=== PATIENT | female | born 1980 | race African-American/Black ===

== ENCOUNTER 2024-12-30 09:26 | Outpatient (AMB) | payer BC, SELFPAY ==
--- OUTSIDE RECORDS SUMMARY | 2024-12-29 10:00 | XMS_ITS | Encounter Summary ---
Author Organization [facility] Address [address] [place] [address] Care Team Providers Care Mine Utility Operator Name Role Phone Diane Pina DO Primary Care Provider [phone] Reason for Visit * Consultation (Routine) - Authorized Specialty Diagnoses / Procedures Referred By Contbindu sellers Referred To Contact Physical Therapy Diagnoses Arthralgia, unspecified joint Diane Pina DO [address] [place] [address] Phone: tel: fax: Referral ID Status Reason Start Date Expiration Date Visits Requested Visits Authorized [id number] Authorized Specialty Services Required 09/17/2024 09/17/2025 21 21 Encounter Details Date Type Department Care Team ([facility] st Contact Info) Description 12/29/2024 10:00 AM EDT Treatment [address] [phone] Heather Gan PT Arthralgia, unspecified joint (Primary Dx) Social History Tobacco Use Types Packs/Day Years Used Date Smoking Tobacco: Never Smokeless Tobacco: Never Alcohol Use Standard Drinks/Week Comments Yes 0 (1 standard drink = 0.6 oz pur e alcohol) Socially, not weekly Housing Instability Answer Date Recorde d Are you worried that in the next 2 months you may not have stable housing? No 07/15/2024 Food Access & Nutrition Answer Date Rec orded Do you have access to a vari ety of food including fruits and vegetables? Yes 07/15/2024 Access to Healthcare Answer Date Record ed Within the last 3 months, ho w many times did you visit the emergency department for your medical care? 0 07/15/2024 Health Literacy Answer Date Recorded How often do you need to hav e someone help you when you read instructions, pamphlets, or other written material from your doctor or pharmacy? Never 07/15/2024 Caregiver: How often do you need to have someone help you when you read instructions, pamphlets, or other written material from your doctor or pharmacy? Not on file 07/15/2024 Financial Risk Answer Date Recorded How hard is it for you to pa y for the very basics like food, housing, medical care, and air conditioning / heating? Somewhat hard 07/15/2024 Transportation Answer Date Recorded Has the lack of transportati on kept you from meetings, work, or from getting things needed for daily living? No Has the lack of transportati on kept you from medical appointments or from getting medications? No 07/15/2024 Social Isolation Answer Date Recorded How often do you feel lonely or isolated from th ose around you? Never 07/15/2024 Food Risk Answer Date Recorded Within the past 12 months we worried whether our food would run out before we got money to buy more. Sometimes true 025 Within the past 12 months th e food we bought just didn't last and we didn't have money to get more. Never true 07/15/2024 Dependent Care Answer Date Recorded Do you need help finding or paying for care for your loved ones. For example, childhood development teacher or elderly care for an older adult? No 07/15/2024 Education Answer Date Recorded Do you think completing more education or training, like finishing a GED, going to college, or learning a trade, would be helpful for you? N/A 07/15/2024 Employment and Income Answer Date Recor ded During the last four weeks, have you been actively looking for work? No 07/15/2024 Living Situation Answer Date Recorded What is your living situation? 0 07/15/2024 Comments No Sex and Gender Information Value Date Recorded Sex Assigned at Female 07/23/2024 11:22 AM EST Legal Sex Female 10:30 PM EST Gender Identity Female 07/23/2024 11:22 AM EST Sexual Orientation Straight 07/23/2024 11 :22 AM EST documented as of this encounter Progress Notes * Heather Gan, PT - 12/29/2024 10:00 AM EDT [facility] - Outpatient PHYSICAL THERAPY DAILY TREATMENT NOTE - OP Date: 12/29/2024 Visit Number: [id number] Patient Name: Shelia Mcgarry : 1980 Age: 44 y.o. Gender: female Diagnosis: ICD-10-CM ICD-9-CM 1. Arthralgia, unspecified joint M25.50 719.40 Date of Onset/Surgery: 09/26/2024 Referring Provider: Diane Pina DO Insurance: Payor: [employer] PLAN / Plan: [employer]ICA[employer] / Product Type: *No Product type* / Patient Identified by: Heather Gan, DELFINO Language: Speaks and understands Hebrew as preferred language with no senior portfolio analyst required Medications: Current Outpatient Medications on File Prior to Visit Medication Sig Dispense Refill propranoloL (INDERAL) 20 mg tablet Take 1 tablet (20 mg total) by mouth 2 (two) times a day. 180 each 0 rimegepant (NURTEC) 75 mg dispersible tablet Take 1 tablet (75 mg total) by mouth 1 (one) time eachday if needed for migraine. 20 tablet 3 traZODone (DESYREL) 50 mg tablet Start with 25mg of trazodone once nightly, you may go up to a fulltablet (50mg) if you are not sleeping well. No current facility-administered medications on file prior to visit. Allergies: is allergic to gabapentin, morphine, and tylenol [acetaminophen]. Precautions: H/o arhythmia Fall risk: No SUBJECTIVE Subjective Report: Pt reported that she notices an improvement with the exercises. Chart Reviewed: Yes Pain: R low back/ hip discomfort, chronic, 3-09/25 TREATMENT INTERVENTION: Nu step, load 5, BLE/BUE, x 6 minutes Standing hip flexor and hamstring stretch, 3 x 15 seconds each (B) Standing resisted bilateral shoulder extension with TAC and marching steps x 5, blue TB, 10 x 5 seconds Pallof press with blue tubing with small CW/CCW circles x 2, x 10 reps (B) bug wall press, x 10 Hip MMT: Flexion: 3/5 (B) ABD: 4/5 L, 4/5 R Extension: 4/5 L, 4/5 R Active SLR x 10 (B), able to perform but slight discomfort on R when lifting RLE Core strength via double leg lowering test: 70 deg (below average -> poor) Floor -> standing transfer on low plinth, x 1, pt able to perform with slight difficulty when standing from quadruped position Bridging x 10 Middle trapezius MMT: 3/5 L, 4-/5 R Lower trapezius MMT: 3/5 L, 4-/5 R Ankle MMT: DF: 4/5 L, 5/5 R PF: 4/5 L, 5/5 R Inversion: 4/5 L, 5/5 R Eversion: 4/5 L, 5/5 R Pt exhibited in ability to sit in relaxed position with toes resting flat on floor Seated big toe press and big toe lift, x 5 each (B) with assist [HEP] Seated toe flexion AROM vs towel on floor, x 5 [HEP] Shoulder ABD AROM via wall slides, x 5, pt demonstrated fair -> fair plus scapulothoracic rhythm HEP: seated shoulder circles, backward, x 10; seated scapular retraction, 10 x 5 seconds; standing isometric shoulder flexion, ABD, ER and extension, 10 x 5 seconds each (B); standing doorway pectoralis minor stretch, 3 x 15 seconds (B); prone A-lifts on Motta, x 10 (B); prone elbow lifts on Motta, x 10 (B); prone swimmers on Motta, x 10 (B), face pull, x 10 x up to 3 sets ASSESSMENT/Response to Treatment Good Pt tolerated therapy session well. Pt demonstrated increased hip MMT overall, however, core strength remains unchanged. Pt reported decreased stability through bilateral feet during functional mobility (floor and chair transfers) without use of UEs. Upon further inspection, pt demonstrated toe flexion at rest and reported that is how she is during standing activities. Pt would benefit from continued PT to address impairments of foot strength and balance in order to allow for greater stability during functional mobility. Short-term goals: Pt will demonstrate compliance with HEP - MET Pt will report decreased pain level to < 6/10 at worst - MET Pt will increase middle and lower trapezius MMT to 3/5 - NOT MET, improving Pt will demonstrate improved postural awareness and scapular resting position - MET Pt will demonstrate at least fair scapulothoracic rhythm during shoulder ABD AROM - MET Pt will complete evaluation of low back pain - MET Long-term goals: Pt will demonstrate independence with HEP - NOT MET, ongoing development Pt will report decreased pain level to < 2/10 at worst - NOT MET, improving Pt will demonstrate full pain-free cervical and shoulder AROM - NOT ASSESSED Pt will increased middle and lower trapezius MMT To 4-/5 - NOT MET, improving Pt will demonstrate scapular resting position to WNL - NOT MET, improving Pt will demonstrate at least fair plus scapulothoracic rhythm during shoulder ABD AROM - NOT MET, improving Pt will increase hip MMT to 4+/5 Pt will perform active SLR without difficulty or pain Pt will transfer floor -> standing without difficulty Pt will demonstrate ability to perform balance activities without excessive toe flexion Patient Education: Education provided: HEP added as described above Education Provided To: Patient utilizing Explanation, Demonstration, and Printed Material mode(s) of education Response to Education: Verbal Understanding and Demonstrated Skills PLAN POC Development/Review: Changes in the Plan of Care; Participants: Patient 2x/wk for 4 wks for BLE strengthening with focus on improving ankle/foot strength and balance Interventions Time Entry: Modalities: Therapeutic procedures: Therapeutic Exercise Time Entry: 40 Total Treatment Time: 40 Documentation completed by Heather Gan PT documented in this encounter Plan of Treatment Upcoming Encounters Date Type Department Care Team (Late st Contact Info) Description 01/21/2025 11:00 AM EDT Office Visit Internal [facility] - [address] [place] [address] Diane Pina, [address] [place] [address] 01/28/2025 12:30 PM EDT Treatment [address] [phone] Heather Gan PT 01/30/2025 12:30 PM EDT Treatment [address] [place] [phone] Heather Gan, PT 02/03/2025 12:30 PM EDT Treatment [facility] [address] [phone] Heather Gan, PT 02/05/2025 12:30 PM EDT Treatment [address] [phone] Heather Gan, PT 02/09/2025 12:30 PM EDT Treatment [address] [phone] Heather Gan, PT 02/11/2025 12:30 PM EDT Treatment [facility] [address] [phone] Heather Gan, PT 02/17/2025 12:30 PM EDT Treatment [address] [phone] Heather Gan, PT 02/19/2025 12:30 PM EDT Treatment [address] [phone] Heather Gan, PT 03/06/2025 11:30 AM EDT Office Visit [facility] [address] [phone] Brooke Soto PA [address] [phone] documented as of this encounter Visit Diagnoses Diagnosis Arthralgia, unspecified joint- Primary documented in this encounter Additional Health Concerns Assessment Noted Time PHQ-9 Depression Total Score: 0 07/15/19 25 2:36 PM EST documented as of this encounter Care Teams Mine Utility Operator Relationship Specialty Start Date End Date Diane Pina DO [address] [place] [id number] PCP - General Internal Medicine 05/12/24 documented as of this encounter
--- NOTE | 2024-12-30 09:28 | MHC.OFFVIS ---
Vital Signs 12/30/24 09:31 Height 5 ft 6.14 in Weight 143 lb BMI 23.0 BP 130/80 Blood Pressure Location Lt brachial Position Sitting Pulse 67 Pulse Source Pulse Oximeter Pulse Oximetry (%) 98 Oxygen Delivery Method Room Air Intake Visit Reasons: + Intake Note: Patient presents today for a +. Allergies acetaminophen (From Tylenol) Allergy (Mild, Verified 12/30/24 09:34) Hives gabapentin Allergy (Mild, Verified 12/30/24 09:34) Anxiety morphine Allergy (Mild, Verified 12/30/24 09:34) Irritable HPI HPI +: Details: She is working with neurologist for headache management. Neurologist recommending repeating due to constellation of symptoms patient was experiencing. I reviewed labs on patient's portal access through her phone: 10/2024 was 1:320. SSA, SSB, RF negative. MRI brain 2023 negative. She had joint pain and myalgias. Paired biomagnetic modalties ordered by functional medicine has helped reduce weight. Improved Gi symptoms - bloating. She has been in PT with improvement in strength. She has noticed that she has had difficulties in lifting her lower extremities. Physical therapy is working on improving her core strength and lower extremity weakness. R trochanteric bursa pain. Intermittent on left side. Improved with PT. No fevers, dyspnea, oral ucers, dysphagia, rash, pleurisy, urinary symptoms, skin tightening Mother has rheumatoid arthritis. [facility] Medical History (Updated 12/30/24 @ 21:45 by King Davidson MD) Positive (antinuclear antibody) Surgical History (Updated 12/30/24 @ 09:35 by Nataliia Jolly CMA) History of hysterectomy Physical Exam Vital Signs: Last Vital Signs Pulse 67 12/30/24 09:31 BP 130/80 12/30/24 09:31 Pulse Ox 98 12/30/24 09:31 Oxygen Delivery Method Room Air 12/30/24 09:31 BMI result Body Mass Index 23.0 Const Other: General: Comfortable CVS: RRR Respiratory: clear to auscultation bilaterally. Good respiratory effort Skin: No lesions seen MSK: Diffuse allodynia of back and lower extremities. No synovitis. Bilateral ankle tenderness. 5/5 power upper extremities. Bilateral Hip flexor power 1/5, she is unable to dorsiflex her ankles. Hip extensors, knee flexors and extensors and ankle plantar flexors power 5/5. She is able to ambulate without aids. Assessment & Plan Assessment & Plan (1) Muscle weakness of lower extremity: Comment: Progressive worsening bilateral lower extremity weakness both proximal and distally with concern for the development of foot drop. 1:320. She does not have any other clinical signs or symptoms aside from lower extremity weakness. I will further workup for muscle and nerve involvement in connective tissue disease. Code(s): M62.81 - Muscle weakness (generalized) Category: Medical Plan: Baseline labs ordered including inflammatory markers, muscle enzymes, lupus specific markers, ANCA, and myositis specific panel. EMG lower extremities ordered Continue PT for strengthening Return to clinic in 3 months (2) Fibromyalgia: Comment: She has diffuse allodynia on exam involving her back and lower extremities. Can consider fibromyalgia contributing to myalgias but weakness is not a component of fibromyalgia needs further workup. Code(s): M79.7 - Fibromyalgia Category: Medical Plan: Workup for lower extremity weakness as above Orders: Orders C Reactive Protein Today M62.81 - Muscle weakness (generalized), Z79.899 - Other pen[facility]iary (current) drug therapy Aldolase Today M62.81 - Muscle weakness (generalized) Creatinine Today R76.0 - Raised antibody titer Protein Creatinine Ratio, Ur Today R76.0 - Raised antibody titer NE electromyogram (EMG) Today M62.81 - Muscle weakness (generalized) ANCA Vasculitides Today M62.81 - Muscle weakness (generalized) MSA Panel 11 Myositis Spec Abs Today M62.81 - Muscle weakness (generalized) Creatine Kinase Total Today M62.81 - Muscle weakness (generalized) Erythrocyte Sedimentation Rate Today M62.81 - Muscle weakness (generalized), Z79.899 - Other penitentiary (current) drug therapy Complete Blood Count Man Dif Today R76.0 - Raised antibody titer Alanine Aminotransferase Today R76.0 - Raised antibody titer Aspartate Amino Transferase Today R76.0 - Raised antibody titer Complement C3 Today R76.0 - Raised antibody titer Complement C4 Today R76.0 - Raised antibody titer UA w Microscopic Today R76.0 - Raised antibody titer Anti DNA DS Antibody Today R76.0 - Raised antibody titer NE nerve conduction velocity Today M62.81 - Muscle weakness (generalized) Coding Level of Care Code Est Pt Level 4 (78482) Complex EM visit Add On G2211 Diagnoses Muscle weakness of lower extremity M62.81 Fibromyalgia M79.7
[2024-12-30 09:31] VITALS: BP 130/80; PULSE 67; O2SAT 98; BMI 23.0
--- OUTSIDE RECORDS SUMMARY | 2024-12-30 09:57 | XMS_ITS | Encounter Summary ---
Author Organization [facility] Address [address] [place] [address] Care Team Providers Care Mill Tender Second Operator Name Role Phone Radha Romano APRN Primary Care Provider + Jordan Ken MD Unavailable [phone] Encounter Details Date Type Department Care Team (Late st Contact Info) Description 04/04/2024 Scanned Document [facility] [address] [place] [phone] Radha Romano APRN [address] [place] [address] Social History Tobacco Use Types Packs/Day Years Used Date Smoking Tobacco: Never Smokeless Tobacco: Never Alcohol Use Standard Drinks/Week Comments Not Asked 0 (1 standard drink = 0.6 oz pur e alcohol) 1 drink/week PHQ-2 Answer Date Recorded PHQ-2 Total Score 4 06/22/2023 Comments No Sex and Gender Information Value Date Recorded Sex Assigned at Female 10/08/2023 7:18 AM EDT Legal Sex Female 3:16 PM EST Gender Identity Female 10/08/2023 7:18 AM EDT Sexual Orientation Heterosexual (straight) 10/07 7:18 AM EDT documented as of this encounter Plan of Treatment Not on file documented as of this encounter Visit Diagnoses Not on filedocumented in this encounter Care Teams Mill Tender Second Operator Relationship Specialty Start Date End Date Radha Romano APRN [address] [facility] [address] [place] [address] PCP - General Internal Medicine 06/22/23 Jordan Ken MD 7 [facility] [address] [place] [address] Primary Barrel Lathe Operator Cardiovascular Disease 11/28/23 documented as of this encounter
--- OUTSIDE RECORDS SUMMARY | 2024-12-30 09:58 | XMS_ITS | Clinical Summary ---
Author Organization [facility] Address [address] [place] [address] Care Team Providers Care Offset Pressman Name Role Phone Unavailable Primary Care Provider Unavailabl e Immunizations Name Administration Dates Next Due IPV 04/09/2019 Social History Tobacco Use Types Packs/Day Years Used Date Smoking Tobacco: Never Assessed Sex and Gender Information Value Date Recorded Sex Assigned at Not on file Gender Identity Not on file Sexual Orientation Not on file Job Start Date Occupation Industry Not on file Not on file Not on file Plan of Treatment Health Maintenance Due Date Last Done Comments Hepatitis B Vaccines (1 of 3 - 3-dose series) 1980 Hepatitis C Screening 1980 Depression Screening 1993 Preventative Health Evaluation 11/21/1999 Cervical Cancer Screening (Pap Smear) 2002 DTap / Tdap / Td (2 - Td or Tdap) 10/24/2022 10/24/2012 COVID-19 Vaccine ( season) 2024 11/16/2020, 10/18/2020 Influenza Vaccine (#1) 2025 , 03/01/2020, 04/06/2019, Additional history exists Pneumococcal Vaccine Aged Out No long er eligible based on patient's age to complete this topic RSV Ped < 20 months Aged Out No longe r eligible based on patient's age to complete this topic
--- OUTSIDE RECORDS SUMMARY | 2024-12-30 09:58 | XMS_ITS | Data Portability ---
Author Organization [facility], [facility], Primary Care [facility] Address [address] Care Team Providers Care Impregnator Helper Name Role Phone ADRIEL MACEDO Primary Care Provider JULIA DEGROOT Educational Adviser [phone] Assessment Encounter Date Assessment Date Assessment LastModified by Organization Details LastModified Time 01/24/2021 01/24/2021 I spent a total of 60 minutes on the same date of service providing [id number] and [id number] susan patient care. [email or web address] Not available 01/24/2021 17:53:17 02/24/2021 02/24/2021 The service is provided via Teleus which is an audio visual platform. I personally saw and spoke to the patient. Pt gave consent for this service. I was at the office. Patient was home. Office Supervisor, patient and I were the only people involved with the TeleHealth visit. This service was medically necessary due to underlying medical condition. Time spent in preparation, evaluation, and management of the patient = 22 minutes [email or web address] Not available 02/24/2021 15:35:05 Plan of Treatment Reminders Order Date Submit Date Provider Last Modified By Organization Details Last Modified Time Details Appointments None recorded. Lab catalina screen, serum 2020 021 [facility], [address] [place] [address], 30970, 09:01:21 thyroperoxi dase Ab, serum 2020 021 [facility], [address] [place] [address], 71255, 1 08:36:49 HIV (1+2) Ab screen, serum 2020 021 [facility], [address] [place] [address], 27224, 1 19:31:15 hepatitis (A+B+C) panel, serum 2020 021 [facility], [address] [place] [address], 65263, 1 08:37:00 antiphospho lipid antibody panel, serum 2020 021 [facility], [address] [place] [address], 89716, 1 08:37:21 catalina screen, serum 2020 021 [facility], [address] [place] [address], 03016, 1 09:01:21 C3 + C4 (complement ), serum 2020 021 [facility], [address] [place] [address], 71916, 1 08:38:02 CBC w/ diff 2020 021 [facility], [address] [place] [address], 88334, 1 09:01:21 CMP, serum or plasma 2020 021 [facility], [address] [place] [address], 55645, 1 19:31:12 protein/cre atinine, ratio, urine 2020 021 [facility], [address] [place] [address], 72034, 09:01:21 urinalysis, complete 2020 021 [facility], [address] [place] [address], 21550, 09:01:21 scleroderma (scl-70) Ab, serum [address] [facility], [address] [place] [address], 60104, 10:38:12 centromere Ab, serum [address] [facility], [address] [place] [address], 94202, 10:38:12 rf (rheumatoid factor), serum 2020 [facility], [address] [place] [address], 29459, 15:49:19 ccp (cyclic citrullinat ed peptide) igg, serum 2020 021 [facility], [address] [place] [address], 11171, 15:49:21 (antinuclea r antibodies) screen, serum [address] [facility], [address] [place] [address], 59058, 2 10:00:06 CK (creatine kinase), total, serum 2020 021 [facility], [address] [place] [address], 89376, 1 15:49:16 ESR (erythrocyt e sedimentati on rate), blood [address] [facility], [address] [place] [address], 21081, 2 10:00:06 C reactive protein, QN, serum or plasma 2020 021 [email or web address] [facility], [address] [place] [address], 05817, 2 10:00:06 celiac disease comprehensi ve panel, serum 2019 020 [facility], [address] [place] [address], 97487, 0 19:33:31 CK (creatine kinase), total, serum 2019 020 [facility], [address] [place] [address], 66103, 0 10:01:19 rf (rheumatoid factor), serum 2019 020 [facility], [address] [place] [address], 01757, 0 10:01:26 C-reactive protein, quantitativ e, serum or plasma 2019 020 [facility], [address] [place] [address], 31429, 0 10:01:20 erythrocyte sedimentati on rate by westergren method 2019 020 [facility], [address] [place] [address], 31613, 1 15:49:17 (antinuclea r antibodies) screen, serum 2019 020 [facility], [address] [place] [address], 45113, 0 12:40:44 lyme disease igg+igm, serum, reflex western blot [address] [facility], [address] [place] [address], 56334, 1 08:56:49 HIV (1+2) differentia tion, rapid immunoassay , serum [address] [facility], [address] [place] [address], 16119, 1 08:56:49 hepatitis B surface Ab, qualitative , serum [address] [facility], [address] [place] [address], 42958, 1 08:56:49 vitamin D, 25-hydroxy, total, serum 2019 [facility], [address] [place] [address], 05011, 0 10:01:27 CMP, serum or plasma 2019 [facility], [address] [place] [address], 62231, 0 10:01:18 CBC [address] [facility], [address] [place] [address], 38399, 0 16:23:34 lipid panel, blood [address] [facility], [address] [place] [address], 89440, 0 16:23:34 HbA1c (hemoglobin A1c), blood [address] [facility], [address] [place] [address], 83975, 0 16:23:34 TSH, serum or plasma 2019 [facility], [address] [place] [address], 18647, 0 10:01:23 T4, free, serum [address] [facility], [address] [place] [address], 46056, 0 16:23:34 hepatitis C virus Ab, serum [address] [facility], [address] [place], [address], 1 11:05:31 Referral orthopedic surgeon referral - Progressive lumbar radiculopat hy 2/2 lateral disc protrusion worsening proximal muscle weakness. [address] [facility], [address], [place], [address], 1 11:06:40 rheumatolog ist referral 2020 SCARLETT Degroot, [address], [place], [address], 1 17:57:19 gastroenter ologist referral [address] [facility]), [address], [place], [address], 1 15:39:44 Procedures None recorded. Surgeries None recorded. Imaging XR, shoulder, 2 or more view 2020 [facility] (Central Scheduling), [address] [place], [address], 1 17:09:19 MRI, lumbar spine, w/o contrast 2019 [facility] (Central Scheduling), [address] [place], [address], 0 15:07:11 MRI, brain, w/o contrast 2019 020 [facility] (Central Scheduling), [address] [place], [address], 0 08:52:54 Medication Orders meloxicam 15 mg tablet 2020 021 [email or web address], [address] [place], [address], 17:52:13 hydroxyzine HCl 25 mg tablet 2020 021 [facility] [address] [place], [address], 10:53:56 ibuprofen 600 mg tablet 2020 021 [facility] [address] [place], [address], 10:53:56 pantoprazol e 40 mg tablet,fide yed release 2019 020 [facility] [address] [place], [address], 10:24:19 gabapentin 100 mg capsule 2019 020 [facility], [address] [place], [address], 10:24:37 lorazepam 0.5 mg tablet 2019 020 [facility], [address] [place], [address], 10:24:25 Patient TargetsNo targets recorded. Patient InstructionsNo instructions recorded. Reason for Referral Blueprint Reader Referral for Celiac disease Referring Physician: Adriel Macedo, Internal Medicine, Encounter Date: 01/29/2020 Educational Adviser Referral for Pain of multiple joints Referring Physician: Adriel Macedo, Internal Medicine, Encounter Date: 12/30/2020 Orthopedic Surgeon Referral for Lumbar radiculopathy Progressive lumbar radiculopathy 2/2 lateral disc protrusion worsening proximal muscle weakness. Referring Physician: Julia Degroot, Rheumatology, Encounter Date: 01/24/2021 Results Created Date Observation Date Name Description Value Unit Range Abnormal Flag Note LastModifiedBy Organization Detail LastModifiedTime 01/30/20 20 01/30/2020 CBC w/ auto diff white blood count 5.0 /cumm 4.8-10 .8 normal Not Available [facility] [address] [place], [address], 01/30/2020 15:40:22 01/30/20 20 01/30/2020 CBC w/ auto diff red blood count 4.71 /cumm 4.20-5 .40 normal Not Available [facility] [address] [place], [address], 01/30/2020 15:40:22 01/30/20 20 01/30/2020 CBC w/ auto diff hemoglobin 13.2 g/dL 12.0-1 6.0 normal Not Available [facility] [address] [place], [address], 01/30/2020 15:40:22 01/30/20 20 01/30/2020 CBC w/ auto diff hematocrit 42.2 % 37-47 normal Not Available [facility] [address] [place], [address], 01/30/2020 15:40:22 01/30/20 20 01/30/2020 CBC w/ auto diff mean corpuscular volume 89.6 fL 80.0-9 6.0 normal Not Available [facility] [address] [place], [address], 01/30/2020 15:40:22 01/30/20 20 01/30/2020 CBC w/ auto diff mean corpuscular hemoglobin 28.0 pg 27.0-3 1.0 normal Not Available [facility] [address] [place], [address], 01/30/2020 15:40:22 01/30/20 20 01/30/2020 CBC w/ auto diff mean corpuscular HGB conc 31.3 g/dL 32.0-3 7.0 low Not Available [facility] [address] [place], [address], 01/30/2020 15:40:22 01/30/20 20 01/30/2020 CBC w/ auto diff red cell distribution width 12.9 % 11.5-1 4.5 normal Not Available [facility] [address] [place], [address], 01/30/2020 15:40:22 01/30/20 20 01/30/2020 CBC w/ auto diff platelet count 233 /cumm 140-44 0 normal Not Available [facility] [address] [place], [address], 01/30/2020 15:40:22 01/30/20 20 01/30/2020 CBC w/ auto diff mean platelet volume 12.9 fL 7.4-12 .0 high Not Available [facility] [address] [place], [address], 01/30/2020 15:40:22 01/30/20 20 01/30/2020 CBC w/ auto diff granulocytes percent auto 43.3 % 40.0-7 2.0 normal Not Available [facility] [address] [place], [address], 01/30/2020 15:40:22 01/30/20 20 01/30/2020 CBC w/ auto diff lymphocytes percent auto 47.6 % 20.0-5 1.0 normal Not Available [facility] [address] [place], [address], 01/30/2020 15:40:22 01/30/20 20 01/30/2020 CBC w/ auto diff monocytes percent auto 7.1 % 1.0-13 .0 normal Not Available [facility] [address] [place], [address], 01/30/2020 15:40:22 01/30/20 20 01/30/2020 CBC w/ auto diff eosinophils percent auto 1.6 % 0-7.0 normal Not Available [facility] [address] [place], [address], 01/30/2020 15:40:22 01/30/20 20 01/30/2020 CBC w/ auto diff basophils percent auto 0.4 % 0-2.0 normal Not Available [facility] [address] [place], [address], 01/30/2020 15:40:22 01/30/20 20 01/30/2020 CBC w/ auto diff immature granulocyte percent 0 % 0-1.0 normal Not Available [facility] [address] [place], [address], 01/30/2020 15:40:22 01/30/20 20 01/30/2020 CBC w/ auto diff lymphocytes absolute auto 2.4 /cumm 1.0-4. 0 normal Not Available [facility] [address] [place], [address], 01/30/2020 15:40:22 01/30/20 20 01/30/2020 CBC w/ auto diff monocytes absolute auto 0.4 /cumm 0-1.0 normal Not Available [facility] [address] [place], [address], 01/30/2020 15:40:22 01/30/20 20 01/30/2020 CBC w/ auto diff eosinophils absolute auto 0.1 /cumm 0-1.0 normal Not Available [facility] [address] [place], [address], 01/30/2020 15:40:22 01/30/20 20 01/30/2020 CBC w/ auto diff basophils absolute auto 0.0 /cumm 0-0.2 normal Not Available [facility] [address] [place], [address], 01/30/2020 15:40:22 01/30/20 20 01/30/2020 CBC w/ auto diff immature gran absolute auto 0.0 /cumm 0-0.3 normal Not Available [facility] [address] [place], [address], 01/30/2020 15:40:22 01/30/20 20 01/30/2020 eryth rocyt e sedim entat ion rate erythrocyte sedimentatio n rate 3 mm 0-20 normal Not Available [facility] [address] [place] [address], 97710, 01/30/2020 18:13:31 01/30/20 20 01/30/2020 CMP, serum or plasm a glucose 85 mg/dL 65-99 normal Not Available [facility] [address] [place] [address], 95557, 01/31/2020 10:01:18 01/30/20 20 01/30/2020 CMP, serum or plasm a BUN 10 mg/dL 7-17 normal Not Available [facility] [address] [place] [address], 22709, 01/31/2020 10:01:18 01/30/20 20 01/30/2020 CMP, serum or plasm a creatinine 0.7 mg/dL 0.5-1. 0 normal Not Available [facility] [address] [place] [address], 58143, 01/31/2020 10:01:18 01/30/20 20 01/30/2020 CMP, serum or plasm a BUN creatinine ratio 14.3 % 7-25 normal Not Available [facility] [address] [place] [address], 95968, 01/31/2020 10:01:18 01/30/20 20 01/30/2020 CMP, serum or plasm a estimated glomerular filt rate > 60 mL/mi n >60 normal NON Afric an Ameri can Comme nts: Value s under 60 mL/mi n/1.7 3m2 may indic ate CKD if noted for more than 3 month s. eGFR is only valid if creat inine is at stead y state . Not Available [facility] [address] [place] [address], 11936, 01/31/2020 10:01:18 01/30/20 20 01/30/2020 CMP, serum or plasm a estimated GFR ( nelsy > 60 mL/mi n >60 normal [employer] Comme nts: Value s under 60 mL/mi n/1.7 3m2 may indic ate CKD if noted for more than 3 month s. eGFR is only valid if creat inine is at stead y state . Not Available [facility] [address] [place] [address], 53065, 01/31/2020 10:01:18 01/30/20 20 01/30/2020 CMP, serum or plasm a sodium 140 mmol/ L 137-14 5 normal Not Available [facility] [address] [place] [address], 34065, 01/31/2020 10:01:18 01/30/20 20 01/30/2020 CMP, serum or plasm a potassium 4.2 mmol/ L 3.5-5. 1 normal Not Available [facility] [address] [place] [address], 77593, 01/31/2020 10:01:18 01/30/20 20 01/30/2020 CMP, serum or plasm a chloride 106 mmol/ L 98-107 normal Not Available [facility] [address] [place] [address], 43776, 01/31/2020 10:01:18 01/30/20 20 01/30/2020 CMP, serum or plasm a carbon dioxide 28 mmol/ L 22-30 normal Not Available [facility] [address] [place] [address], 88365, 01/31/2020 10:01:18 01/30/20 20 01/30/2020 CMP, serum or plasm a anion gap 6 5-16 normal Not Available [facility] [address] [place] [address], 17850, 01/31/2020 10:01:18 01/30/20 20 01/30/2020 CMP, serum or plasm a calcium 9.3 mg/dL 8.4-10 .2 normal Not Available [facility] [address] [place] [address], 28407, 01/31/2020 10:01:18 01/30/20 20 01/30/2020 CMP, serum or plasm a total protein 6.8 g/dL 6.3-8. 2 normal Not Available [facility] [address] [place], [address], 01/31/2020 10:01:18 01/30/20 20 01/30/2020 CMP, serum or plasm a albumin level 3.9 g/dL 3.5-5. 0 normal Not Available [address], [address], 01/31/2020 10:01:18 01/30/20 20 01/30/2020 CMP, serum or plasm a globulin 2.9 g/dL 1.9-4. 1 normal Not Available [facility] [address] [place] [address], 38759, 01/31/2020 10:01:18 01/30/20 20 01/30/2020 CMP, serum or plasm a albumin globulin ratio 1.3 % 1.1-2. 2 normal Not Available [address], [address], 01/31/2020 10:01:18 01/30/20 20 01/30/2020 CMP, serum or plasm a bilirubin,to sesar 0.6 mg/dL 0.2-1. 3 normal Not Available [address], [address], 01/31/2020 10:01:18 01/30/20 20 01/30/2020 CMP, serum or plasm a alkaline phosphatase 59 U/L <127 normal Not Available [facility] [address] [place] [address], 79490, 01/31/2020 10:01:18 01/30/20 20 01/30/2020 CMP, serum or plasm a aspartate amino transferase 22 U/L 14-36 normal Not Available [facility] [address] [place] [address], 29509, 01/31/2020 10:01:18 01/30/20 20 01/30/2020 CMP, serum or plasm a alanine aminotransfe rase < 4 U/L <35 normal Not Available [facility] [address] [place] [address], 75470, 01/31/2020 10:01:18 01/30/20 20 01/30/2020 CK (crea edouard kinas e), total , serum creatine kinase 67 U/L 30-135 normal Not Available [facility] [address] [place], [address], 01/31/2020 10:01:19 01/30/20 20 01/30/2020 C-hernandez ctive prote in, quant itati ve, serum or plasm a C reactive protein < 0.5 mg/dL <1.0 normal Not Available [facility] [address] [place], [address], 01/31/2020 10:01:20 01/30/20 20 01/30/2020 lipid panel , serum cholesterol 184 mg/dL <200 normal Not Available [facility] [address] [place], [address], 01/31/2020 10:01:21 01/30/20 20 01/30/2020 lipid panel , serum triglyceride s 104 mg/dL <150 normal Not Available [facility] [address] [place], [address], 01/31/2020 10:01:21 01/30/20 20 01/30/2020 lipid panel , serum HDL cholesterol 74 mg/dL 40-60 high Not Available [facility] [address] [place], [address], 01/31/2020 10:01:21 01/30/20 20 01/30/2020 lipid panel , serum LDL cholesterol calculated 90 mg/dL 65-129 normal Not Available [facility] [address] [place], [address], 01/31/2020 10:01:21 01/30/20 20 01/30/2020 lipid panel , serum chol HDL ratio 2.00 % 0.00-4 .23 normal Not Available [facility] [address] [place], [address], 01/31/2020 10:01:21 01/30/20 20 01/30/2020 thyro xine, free, QN, serum or plasm a free T4 free thyroxine 1.18 NG/dL 0.78-2 .49 normal Not Available [facility] [address] [place] [address], 18879, 01/31/2020 10:01:22 01/30/20 20 01/30/2020 TSH, serum or plasm a thyroid stimulating hormone 5.820 uIU/m L 0.270- 4.200 high Not Available [facility] [address] [place] [address], 16164, 01/31/2020 10:01:23 01/30/20 20 01/31/2020 HBsAg (hepa titis B surfa ce Ag), serum hepatitis B surface antigen NONREA CTIVE nonrea ctive normal Not Available [facility] [address] [place] [address], 17380, 01/31/2020 10:01:24 01/30/20 20 01/31/2020 hepat itis C virus Ab, serum hepatitis C virus antibody IgG NONREA CTIVE nonrea ctive normal Not Available [facility] [address] [place] [address], 13647, 01/31/2020 10:01:25 01/30/20 20 01/30/2020 rf (rheu matoi d facto r), serum rheumatoid factor < 8.6 IU/mL <12 normal Not Available [facility] [address] [place] [address], 49336, 01/31/2020 10:01:25 01/30/20 20 01/30/2020 vitam in D, 25-hy droxy , total , serum vitd 25 hydroxy 33.8 NG/mL 30-100 normal Not Available [facility] [address] [place] [address], 63023, 01/31/2020 10:01:27 01/30/20 20 01/30/2020 HIV (1+O+ 2) Ab, serum HIV 1 and 2 antibody NONREA CTIVE nonrea ctive normal Not Available [facility] [address] [place], [address], 01/31/2020 10:01:27 01/30/2002/01/2020 hemog lobin A1C/h emogl obin total , QN, blood hemoglobin A1C 5.6 % 4.2-5. 8 normal Not Available [facility] [address] [place] [address], 605[address], 02/01/2020 09:25:39 01/30/20 20 02/01/2020 luc c disea se compr ehens yo panel , serum gliadin (deamidated) Ab (IgA) 5 units normal Value Inter preta tion ----- ----- ----- ---- <20 Antib willi not detec katherine >or=2 0 Antib willi detec katherine Not Available [facility] [address] [place] [address], 86[address], 02/01/2020 19:33:30 01/30/20 20 02/01/2020 luc c disea se compr ehens yo panel , serum gliadin (deamidated) Ab (IgG) 3 units normal Value Inter preta tion ----- ----- ----- ---- <20 Antib willi not detec katherine >or=2 0 Antib willi detec katherine THIS TEST WAS PERFO RMED AT: [facility] [address] ,[place] [phone] CARTER RAINES MD Not Available [facility] [address] [place] [address], [address], 02/01/2020 19:33:30 01/30/2002/01/2020 luc c disea se compr ehens yo panel , serum tissue transglutami nase Ab IgA 1 U/mL normal Value Inter preta tion ----- ----- ----- ---- <4 No Antib willi Detec katherine > or = 4 Antib willi Detec katherine THIS TEST WAS PERFO RMED AT: [facility] [address] ,[place] [address] CARTER RAINES MD Not Available [facility] [address] [place] [address], 05674, 02/01/2020 19:33:30 01/30/20 20 02/01/2020 luc c disea se compr ehens yo panel , serum tissue transglutami nase Ab IgG 1 U/mL normal Value Inter preta tion ----- ----- ----- ---- <6 No Antib willi Detec katherine > or = 6 Antib willi Detec katherine Not Available [facility] [address] [place], [address], 02/01/2020 19:33:30 01/30/20 20 02/01/2020 luc c disea se compr ehens yo panel , serum immunoglobul in A 113 mg/dL 47-310 normal THIS TEST WAS PERFO RMED AT: [facility] [employer] [employer] [facility] [address] ,[place] [phone] CARTER RAINES MD Not Available [facility] [address] [place] [address], [address], 02/01/2020 19:33:30 01/30/20 20 02/01/2020 lyme disea se antib willi lyme disease antibody 0.32 ratio <1.0 normal REFER ENCE RANGE S RATIO INTER PRETA TION ===== ===== ===== ==== < or = to 0.90 Negat yo (No Lyme Disea se detec katherine) 0.91 - 1.09 Equiv ocal (Low level of Lyme Disea se antib willi detec katherine. Sugge st repea t wilfred sis to confi rm antib willi statu s.) > or = to 1.1 Posit yo (Lyme Disea se Antib willi detec katherine) NOTE: All resul ts great er than 0.90 are refle xed for confi rmati on by Jason hair Blot. Not Available [facility] [address] [place], [address], 02/05/2020 12:40:43 01/30/20 20 02/05/2020 (anti nucle ar antib odies ) scree n, serum anti nuclear antibody screen Pos by IFA Assay neg 1:40 normal Not Available [facility] [address] [place], [address], 02/05/2020 12:40:44 01/30/20 20 02/05/2020 titer , serum anti nuclear antibody titer Pos 1:640 normal Not Available [facility] [address] [place], [address], 02/05/2020 12:40:45 01/30/20 20 02/05/2020 patte rn, serum anti nuclear antibody pattern Homoge neous normal Rerer ence Range s: ===== ===== ===== ===== ===== ===== == Negat yo: <1:40 Low AB Level : 1:40 to 1:80 Newfane katherine AB Level : >1:16 0 ===== ===== ===== ===== ===== ===== == (Martha rect Immun ofluo resce nce - KB Cell Line) NOTE: Low titer s of may be found in the josh l popul ation , incid ence in healt hy adult s incre ases with age and is highe r in femal es. Up to 1/3 of patie nts over age 65 have a low titer posit yo . Quali tativ angelica sever al patte rns of fluor escen ce can be seen inclu ding Speck led, Homog eneou s, Centr omere , Nucle olar and Perip heral Rim, Multi ple patte rns may also co-ex ist. Titer s in the range of 1:125 0 are sugge stive of SLE or Scler oderm a. Patte rns and titer may vary with the clini hazel state of disea se. No singl e serol ogica l deter minat ion shoul d be used as a sole crite lory for diagn osis. All clini hazel and labor atory data must be consi dered . Not Available [facility] [address] [facility], [place], [address], 02/05/2020 12:40:51 01/08/20 21 01/10/2021 CREAT INE KINAS E, TOTAL creatine kinase, total 128 U/L 29-143 normal Not Available [facility] [address], [place], [address], 01/10/2021 15:49:16 01/08/20 21 01/10/2021 SED RATE BY MODIF IED WESTE RGREN sed rate by modified westergren 2 mm/h < or = 20 normal Not Available [facility] [address], [place], [address], 01/10/2021 15:49:17 01/08/20 21 01/10/2021 SCREE N, IFA, W/REF L TITER AND PATSABINO RN screen, ifa POSITI VE negati ve abnormal IFA is a first line scree n for detec ting the prese nce of up to appro ximat angelica 150 autoa ntibo dies in vario us autoi mmune disea ses. A posit yo IFA resul t is sugge stive of autoi mmune disea se and refle xes to titer and allen rn. Fur er labor atory testi ng may be consi dered if clini clarissa indic ated. For addit ional infor hieu wilhelm refer to http: //kirill Mckeon stDia gnost ics.c om/fa q/FAQ 177 (This link is being provi ded for infor loreta gutierrez/ educkalpesh holliday purpo ses only. ) Not Available [facility] [address], [place], [address], 01/10/2021 15:49:18 01/08/20 21 01/10/2021 SCREE N, IFA, W/REF L TITER AND PATTE RN titer 1:640 titer high Refer ence Range <1:40 Negat yo 1:40- 1:80 Low Antib willi Level >1:80 [place] katherine Antib wlili Level Not Available [facility] [address], [address], 01/10/2021 15:49:18 01/08/20 21 01/10/2021 SCREE N, IFA, W/REF L TITER AND PATTE RN pattern Nuclea r, Dense Fine Speckl ed abnormal Dense fine speck led patte rn is seen in josh l indiv idual s and rarel y assoc iated with syste umer lupus eryth emato sis (SLE) , Sjogr en's syndr ome and syste umer scler osis. AC-2: Dense Fine Speck led Inter natio nal Conse nsus on Patte rns ([email or web address]- 2017- 0052) Not Available [facility] [address], [place], [address], 01/10/2021 15:49:18 01/08/20 21 01/10/2021 RHEUM ATOID FACTO R rheumatoid factor <14 IU/mL <14 normal Not Available [facility] [address], [address], 01/10/2021 15:49:19 01/08/20 21 01/10/2021 C-HERNANDEZ CTIVE PROTE IN C-reactive protein 0.3 mg/L <8.0 normal Not Available [facility] [address], [address], 01/10/2021 15:49:20 01/08/20 21 01/10/2021 CYCLI C CITRU LLINA KATHERINE PEPTI DE (CCP) AB (IGG) cyclic citrullinate d peptide (ccp) Ab (IgG) <16 units normal Refer ence Range Negat yo: <20 Weak Posit yo: 20-39 Moder ate Posit yo: 40-59 Stron g Posit yo: >59 Not Available [facility] [address], [place], [address], 01/10/2021 15:49:21 01/25/20 21 01/24/2021 COMPL ETE BLOOD COUNT AUTO DIFF white blood count 5.2 /cumm 4.8-10 .8 normal Not Available [facility] [address] [place], [address], 01/24/2021 18:13:07 01/25/20 21 01/24/2021 COMPL ETE BLOOD COUNT AUTO DIFF red blood count 4.83 /cumm 4.20-5 .40 normal Not Available [facility] [address] [place], [address], 01/24/2021 18:13:07 01/25/20 21 01/24/2021 COMPL ETE BLOOD COUNT AUTO DIFF hemoglobin 14.0 g/dL 12.0-1 6.0 normal Not Available [facility] [address] [place], [address], 01/24/2021 18:13:07 01/25/20 21 01/24/2021 COMPL ETE BLOOD COUNT AUTO DIFF hematocrit 43.5 % 37-47 normal Not Available [facility] [address] [place], [address], 01/24/2021 18:13:07 01/25/20 21 01/24/2021 COMPL ETE BLOOD COUNT AUTO DIFF mean corpuscular volume 90.1 fL 80.0-9 6.0 normal Not Available [facility] [address] [place], [address], 01/24/2021 18:13:07 01/25/20 21 01/24/2021 COMPL ETE BLOOD COUNT AUTO DIFF mean corpuscular hemoglobin 29.0 pg 27.0-3 1.0 normal Not Available [facility] [address] [place], [address], 01/24/2021 18:13:07 01/25/20 21 01/24/2021 COMPL ETE BLOOD COUNT AUTO DIFF mean corpuscular HGB conc 32.2 g/dL 32.0-3 7.0 normal Not Available [facility] [address] [place], [address], 01/24/2021 18:13:07 01/25/20 21 01/24/2021 COMPL ETE BLOOD COUNT AUTO DIFF red cell distribution width 12.1 % 11.5-1 4.5 normal Not Available [facility] [address] [place], [address], 01/24/2021 18:13:07 01/25/20 21 01/24/2021 COMPL ETE BLOOD COUNT AUTO DIFF platelet count 264 /cumm 140-44 0 normal Not Available [facility] [address] [place], [address], 01/24/2021 18:13:07 01/25/20 21 01/24/2021 COMPL ETE BLOOD COUNT AUTO DIFF mean platelet volume 12.5 fL 7.4-12 .0 high Not Available [facility] [address] [place], [address], 01/24/2021 18:13:07 01/25/20 21 01/24/2021 COMPL ETE BLOOD COUNT AUTO DIFF granulocytes percent auto 57.6 % 40.0-7 2.0 normal Not Available [facility] [address] [place], [address], 01/24/2021 18:13:07 01/25/20 21 01/24/2021 COMPL ETE BLOOD COUNT AUTO DIFF lymphocytes percent auto 34.1 % 20.0-5 1.0 normal Not Available [facility] [address] [place], [address], 01/24/2021 18:13:07 01/25/20 21 01/24/2021 COMPL ETE BLOOD COUNT AUTO DIFF monocytes percent auto 7.3 % 1.0-13 .0 normal Not Available [facility] [address] [place], [address], 01/24/2021 18:13:07 01/25/20 21 01/24/2021 COMPL ETE BLOOD COUNT AUTO DIFF eosinophils percent auto 0.6 % 0-7.0 normal Not Available [facility] [address] [place], [address], 01/24/2021 18:13:07 01/25/20 21 01/24/2021 COMPL ETE BLOOD COUNT AUTO DIFF basophils percent auto 0.4 % 0-2.0 normal Not Available [facility] [address] [place], [address], 01/24/2021 18:13:07 01/25/20 21 01/24/2021 COMPL ETE BLOOD COUNT AUTO DIFF immature granulocyte percent 0 % 0-1.0 normal Not Available [facility] [address] [place], [address], 01/24/2021 18:13:07 01/25/20 21 01/24/2021 COMPL ETE BLOOD COUNT AUTO DIFF lymphocytes absolute auto 1.8 /cumm 1.0-4. 0 normal Not Available [facility] [address] [place], [address], 01/24/2021 18:13:07 01/25/20 21 01/24/2021 COMPL ETE BLOOD COUNT AUTO DIFF monocytes absolute auto 0.4 /cumm 0-1.0 normal Not Available [facility] [address] [place], [address], 01/24/2021 18:13:07 01/25/20 21 01/24/2021 COMPL ETE BLOOD COUNT AUTO DIFF eosinophils absolute auto 0.0 /cumm 0-1.0 normal Not Available [facility] [address] [place], [address], 01/24/2021 18:13:07 01/25/20 21 01/24/2021 COMPL ETE BLOOD COUNT AUTO DIFF basophils absolute auto 0.0 /cumm 0-0.2 normal Not Available [facility] [address] [place], [address], 01/24/2021 18:13:07 01/25/20 21 01/24/2021 COMPL ETE BLOOD COUNT AUTO DIFF immature gran absolute auto 0.0 /cumm 0-0.3 normal Not Available [facility] [address] [place], [address], 01/24/2021 18:13:07 01/25/20 21 01/24/2021 URINE TOTAL PROTE IN/CR EATIN INE creatinine urine random 67.6 mg/dL not establ ished normal Not Available [facility] [address] [place], [address], 01/24/2021 19:25:50 01/25/20 21 01/24/2021 URINE TOTAL PROTE IN/CR EATIN INE total protein urine random < 5 mg/dL 0-12 normal Not Available [facility] [address] [place], [address], 01/24/2021 19:25:50 01/25/20 21 01/24/2021 URINE TOTAL PROTE IN/CR EATIN INE urine protein/crea t ratio <0.2 normal Unab le to calcu late Urine Total Prote in/Cr eatin ine Ratio ; Urine Total Prote in is outsi de the wilfred tical measu remen t range . Not Available [facility] [address] [place], [address], 01/24/2021 19:25:50 01/25/20 21 01/24/2021 COMPR EHENS YO METAB OLIC PANEL glucose 84 mg/dL 65-99 normal Not Available [facility] [address] [place], [address], 01/24/2021 19:31:12 01/25/20 21 01/24/2021 COMPR EHENS YO METAB OLIC PANEL BUN 9 mg/dL 7-17 normal Not Available [facility] [address] [place], [address], 01/24/2021 19:31:12 01/25/20 21 01/24/2021 COMPR EHENS YO METAB OLIC PANEL creatinine 0.8 mg/dL 0.5-1. 0 normal Not Available [facility] [address] [place], [address], 01/24/2021 19:31:12 01/25/20 21 01/24/2021 COMPR EHENS YO METAB OLIC PANEL BUN creatinine ratio 11.3 % 7-25 normal Not Available [facility] [address] [place], [address], 01/24/2021 19:31:12 01/25/20 21 01/24/2021 COMPR EHENS YO METAB OLIC PANEL estimated glomerular filt rate > 60 mL/mi n >60 normal NON Afric an Ameri can Comme nts: Value s under 60 mL/mi n/1.7 3m2 may indic ate CKD if noted for more than 3 month s. eGFR is only valid if creat inine is at stead y state . Not Available [facility] [address] [place], [address], 01/24/2021 19:31:12 01/25/20 21 01/24/2021 COMPR EHENS YO METAB OLIC PANEL estimated GFR ( nelsy > 60 mL/mi n >60 normal Afric an Ameri can Comme nts: Value s under 60 mL/mi n/1.7 3m2 may indic ate CKD if noted for more than 3 month s. eGFR is only valid if creat inine is at stead y state . Not Available [facility] [address] [place], [address], 01/24/2021 19:31:12 01/25/20 21 01/24/2021 COMPR EHENS YO METAB OLIC PANEL sodium 136 mmol/ L 137-14 5 low Not Available [facility] [address] [place], [address], 01/24/2021 19:31:12 01/25/20 21 01/24/2021 COMPR EHENS YO METAB OLIC PANEL potassium 4.6 mmol/ L 3.5-5. 1 normal Not Available [facility] [address] [place] [address], [address], 01/24/2021 19:31:12 01/25/20 21 01/24/2021 COMPR EHENS YO METAB OLIC PANEL chloride 107 mmol/ L 98-107 normal Not Available [facility] [address] [place], [address], 01/24/2021 19:31:12 01/25/20 21 01/24/2021 COMPR EHENS YO METAB OLIC PANEL carbon dioxide 21 mmol/ L 22-30 low Not Available [facility] [address] [place] [address], [address], 01/24/2021 19:31:12 01/25/20 21 01/24/2021 COMPR EHENS YO METAB OLIC PANEL anion gap 8 5-16 normal Not Available [facility] [address] [place] [address], [address], 01/24/2021 19:31:12 01/25/20 21 01/24/2021 COMPR EHENS YO METAB OLIC PANEL calcium 9.5 mg/dL 8.4-10 .2 normal Not Available [facility] [address] [place] [address], [address], 01/24/2021 19:31:12 01/25/20 21 01/24/2021 COMPR EHENS YO METAB OLIC PANEL total protein 7.6 g/dL 6.3-8. 2 normal Not Available [facility] [address] [place] [address], [address], 01/24/2021 19:31:12 01/25/20 21 01/24/2021 COMPR EHENS YO METAB OLIC PANEL albumin level 4.6 g/dL 3.5-5. 0 normal Not Available [facility] [address] [place] [address], [address], 01/24/2021 19:31:12 01/25/20 21 01/24/2021 COMPR EHENS YO METAB OLIC PANEL globulin 3.0 g/dL 1.9-4. 1 normal Not Available [facility] [address] [place], [address], 01/24/2021 19:31:12 01/25/20 21 01/24/2021 COMPR EHENS YO METAB OLIC PANEL albumin globulin ratio 1.5 % 1.1-2. 2 normal Not Available [facility] [address] [place] [address], [address], 01/24/2021 19:31:12 01/25/20 21 01/24/2021 COMPR EHENS YO METAB OLIC PANEL bilirubin,to sesar 0.5 mg/dL 0.2-1. 3 normal Not Available [facility] [address] [place] [address], [address], 01/24/2021 19:31:12 01/25/20 21 01/24/2021 COMPR EHENS YO METAB OLIC PANEL alkaline phosphatase 61 U/L <127 normal Not Available [facility] [address] [place] [address], [address], 01/24/2021 19:31:12 01/25/20 21 01/24/2021 COMPR EHENS YO METAB OLIC PANEL aspartate amino transferase 20 U/L 14-36 normal Not Available [facility] [address] [place] [address], [address], 01/24/2021 19:31:12 01/25/20 21 01/24/2021 COMPR EHENS YO METAB OLIC PANEL alanine aminotransfe rase 4 U/L <35 normal Not Available [facility] [address] [place] [address], [address], 01/24/2021 19:31:12 01/25/20 21 01/24/2021 HEPAT ITIS PANEL hepatitis A antibody IgM NONREA CTIVE nonrea ctive normal Not Available [facility] [address] [place], [address], 01/24/2021 19:31:13 01/25/20 21 01/24/2021 HEPAT ITIS PANEL hepatitis B surface antigen NONREA CTIVE nonrea ctive normal Not Available [facility] [address] [place], [address], 01/24/2021 19:31:13 01/25/20 21 01/24/2021 HEPAT ITIS PANEL hepatitis C virus antibody IgG NONREA CTIVE nonrea ctive normal Not Available [facility] [address] [place], [address], 01/24/2021 19:31:13 01/25/20 21 01/24/2021 HEPAT ITIS PANEL hepatitis B core IgM NONREA CTIVE nonrea ctive normal Not Available [facility] [address] [place] [address], [address], 01/24/2021 19:31:13 01/25/20 21 01/24/2021 THYRO ID PEROX IDASE ANTIB WILLI thyroid peroxidase antibody 29 U/mL <61 normal Not Available [facility] [address] [place] [address], [address], 01/24/2021 19:31:14 01/25/20 21 01/24/2021 HIV 1 AND 2 ANTIB WILLI HIV 1 and 2 antibody NONREA CTIVE nonrea ctive normal Not Available [facility] [address] [place] [address], [address], 01/24/2021 19:31:15 01/25/20 21 01/24/2021 URINA LYSIS color urine Yellow stw,ye l,dyl normal Not Available [facility] [address] [place] [address], [address], 01/24/2021 19:48:59 01/25/20 21 01/24/2021 URINA LYSIS clarity urine Clear clear normal Not Available [facility] [address] [place], [address], 01/24/2021 19:48:59 01/25/20 21 01/24/2021 URINA LYSIS specific gravity urine 1.015 1.000- 1.100 normal Not Available [facility] [address] [place] [address], [address], 01/24/2021 19:48:59 01/25/20 21 01/24/2021 URINA LYSIS pH urine 7.5 5.0-8. 0 normal Not Available [facility] [address] [place] [address], [address], 01/24/2021 19:48:59 01/25/20 21 01/24/2021 URINA LYSIS protein urine Negati ve mg/dL negati ve normal Not Available [facility] [address] [place] [address], [address], 01/24/2021 19:48:59 01/25/20 21 01/24/2021 URINA LYSIS glucose urine UA Negati ve mg/dL negati ve normal Not Available [facility] [address] [place] [address], [address], 01/24/2021 19:48:59 01/25/20 21 01/24/2021 URINA LYSIS ketones urine Negati ve mg/dL negati ve normal Not Available [facility] [address] [place] [address], [address], 01/24/2021 19:48:59 01/25/20 21 01/24/2021 URINA LYSIS hemoglobin urine Negati ve negati ve normal Not Available [facility] [address] [place] [address], [address], 01/24/2021 19:48:59 01/25/20 21 01/24/2021 URINA LYSIS nitrate urine Negati ve negati ve normal Not Available [facility] [address] [place] [address], [address], 01/24/2021 19:48:59 01/25/20 21 01/24/2021 URINA LYSIS bilirubin urine Negati ve negati ve normal Not Available [facility] [address] [place], [address], 01/24/2021 19:48:59 01/25/20 21 01/24/2021 URINA LYSIS urobilinogen urine 0.2 eu/dL 0.1-1. 0 normal Not Available [facility] [address] [place], [address], 01/24/2021 19:48:59 01/25/20 21 01/24/2021 URINA LYSIS leukocyte esterase urine Negati ve negati ve normal Not Available [facility] [address] [place], [address], 01/24/2021 19:48:59 01/25/20 21 01/24/2021 URINA LYSIS urine microscopic indicated ur Exam Not Requir ed normal Not Available [facility] [address] [place] [address], [address], 01/24/2021 19:48:59 01/25/20 21 01/26/2021 FLEXI TEST1 REFRI G flexitest1 refrig REPORT normal TEST NAME FLAG RESUL T UNITS OF MEASU RE ===== ==== ==== ===== = ===== ===== ===== = SM ANTIB WILLI <1.0 NEG AI REFER ENCE RANGE : <1.0 NEG SM/RN P ANTIB WILLI <1.0 NEG AI REFER ENCE RANGE : <1.0 NEG RESUL T COMME NT: THIS TEST WAS PERFO RMED AT: [facility] [address] ,[place] [address] CARTER RAINES MD Not Available [facility] [address] [place] [address], [address], 01/26/2021 15:07:03 01/25/2001/26/2021 CENTR OMERE B ANTIB WILLI centromere B antibody <1.0 NEG ai <1.0 neg normal THIS TEST WAS PERFO RMED AT: [facility] [address] ,[place] [address] CARTER RAINES MD Not Available [facility] [address] [place] [address], [address], 01/26/2021 15:07:07 01/25/20 21 01/25/2021 COMPL EMENT C3 complement C3 113 mg/dL 83-193 normal THIS TEST WAS PERFO RMED AT: [facility] [address] ,[place] [address] CARTER RAINES MD Not Available [facility] [address] [place] [address], [address], 01/26/2021 15:07:08 01/25/20 21 01/25/2021 COMPL EMENT C4 complement C4 28 mg/dL 15-57 normal THIS TEST WAS PERFO RMED AT: [facility] [address] [place] [address] ,[place] [address] CARTER RAINES MD Not Available [facility] [address] [place], [address], 01/26/2021 15:07:09 01/25/20 21 01/26/2021 SCL-7 0 ANTIB WILLI scl-70 antibody <1.0 NEG ai <1.0 neg normal THIS TEST WAS PERFO RMED AT: [facility] [address] [place] [address] ,[place] [phone] CARTER RAINES MD Not Available [facility] [address] [facility] [address], 01/26/2021 15:07:10 01/25/20 21 01/27/2021 ANTIP HOSPH OLIPI D ANTIB WILLI PANE cardiolipin Ab (IgG) <2.0 gpl-U /mL <20.0 normal Value Inter preta tion ----- ----- ----- ---- < 20.0 Antib willi not detec katherine > or = 20.0 Antib willi detec katherine Not Available [facility] [address] [place] [address], [facility], 01/27/2021 17:16:45 01/25/20 21 01/27/2021 ANTIP HOSPH OLIPI D ANTIB WILLI PANE cardiolipin Ab (IgM) <2.0 mpl-U /mL <20.0 normal Value Inter preta tion ----- ----- ----- ---- < 20.0 Antib willi not detec katherine > or = 20.0 Antib willi detec katherine THIS TEST WAS PERFO RMED AT: [facility] [employer] SEBASTIÁN RENO MD,P HD Not Available [facility] [address] [place] [address], 01/27/2021 17:16:45 01/25/20 21 01/27/2021 ANTIP HOSPH OLIPI D ANTIB WILLI PANE cardiolipin Ab (IgA) <2.0 apl-U /mL <20.0 normal Value Inter preta tion ----- ----- ----- ---- < 20.0 Antib willi not detec katherine > or = 20.0 Antib willi detec katherine Not Available [facility] [address] [place] [address], [facility], 01/27/2021 17:16:45 01/25/2001/27/2021 ANTIP HOSPH OLIPI D ANTIB WILLI PANE B2 glycoprotein I (IgG)Ab <2.0 U/mL <20.0 normal Value Inter preta tion ----- ----- ----- ---- < 20.0 Antib willi not detec katherine > or = 20.0 Antib willi detec katherine THIS TEST WAS PERFO RMED AT: [facility]IM [employer] [facility] [address] [employer] [place] SEBASTIÁN RENO MD,P HD Not Available [facility] [address] [place], [address], 01/27/2021 17:16:45 01/25/20 21 01/27/2021 ANTIP HOSPH OLIPI D ANTIB WILLI PANE B2 glycoprotein I (IgM)Ab <2.0 U/mL <20.0 normal Value Inter preta tion ----- ----- ----- ---- < 20.0 Antib willi not detec katherine > or = 20.0 Antib willi detec katherine THIS TEST WAS PERFO RMED AT: [facility] [place] [place] SEBASTIÁN RENO MD,P HD Not Available [facility] [address] [place] [address], [address], 01/27/2021 17:16:45 01/25/20 21 01/27/2021 ANTIP HOSPH OLIPI D ANTIB WILLI PANE B2 glycoprotein I (IgA)Ab <2.0 U/mL <20.0 normal Value Inter preta tion ----- ----- ----- ---- < 20.0 Antib willi not detec katherine > or = 20.0 Antib willi detec katherine THIS TEST WAS PERFO RMED AT: [facility] [place] [place] SEBASTIÁN RENO MD,P HD Not Available [facility] [address] [place], [address], 01/27/2021 17:16:45 01/25/2001/27/2021 ANTIP HOSPH OLIPI D ANTIB WILLI PANE phosphatidyl serine Ab (IgG) <10 U/mL <10 normal Phosp hatid ylser ine (IgG) Refer ence range : <10 U/mL Negat yo 10-20 U/mL Equiv ocal - [facility] perce [facility] ; may be react yo >20 U/mL Posit yo - Risk facto r for throm bosis and pregn matthew loss. Not Available [facility] [address] [place], [address], 01/27/2021 17:16:45 01/25/20 21 01/27/2021 ANTIP HOSPH OLIPI D ANTIB WILLI PANE phosphatidyl serine Ab (IgM) <25 U/mL <25 normal Phosp hatid ylser ine (IgM) Refer ence range : <25 U/mL Negat yo 25-35 U/mL Equiv ocal - Found in small perce ntage of the [facility] ; may be react yo >35 U/mL Posit yo - Risk facto r for throm bosis THIS TEST WAS PERFO RMED AT: [facility] [address] [place], [place] PATRI LUCINA RENO MD,P HD Not Available [facility] [address] [place], [address], 01/27/2021 17:16:45 01/25/20 21 01/27/2021 ANTIP HOSPH OLIPI D ANTIB WILLI PANE phosphatidyl serine Ab (IgA) <20 U/mL <20 normal Phosp hatid ylser ine (IgA) Refer ence range : <20 U/mL Negat yo 20-30 U/mL Equiv ocal - Found in small perce ntage of the [facility] ; may be react yo >30 U/mL Posit yo - Risk facto r for throm bosis Not Available [facility] [address] [place], [address], 01/27/2021 17:16:45 01/25/20 21 01/27/2021 ANTIP HOSPH OLIPI D ANTIB WILLI PANE interpretive comments see note normal The antip hosph olipi d antib willi syndr ome (APS) is a clini hazel-p athol ogic corre latio n that inclu pal a clini hazel event (e.g. arter ial or venou s throm bosis , pregn matthew morbi dity) and persi stent posit yo anti- phosp holip id antib odies (IgM or IgG ILIA >40 MPL/G PL- U/mL, IgM or IgG anti- b2GPI antib odies or a lupus anti- coagu lant) . Inter natio nal conse nsus guide lines for APS sugge st waiti ng at least 12 weeks befor e retes ting to confi rm antib willi persi stenc e. The Syste umer Lupus Inter natio nal Colla borat ing Clini cs immun ologi hazel class ifica tion crite keisha for syste umer lupus eryth courtney- tosus (SLE) inclu de testi ng for isoty pe IgA, which has yet to be incor porat ed into APS crite keisha. Low level antip hosph olipi d antib odies may somet imes be detec katherine in the setti ng of infec tion, drug thera py or aging . For addit ional infor hieu wilhelm e refer to http: //[facility] jiménezque [employer].c om/fa q/FAQ 109 (This link is being provi ded for infor loreta gutierrez/ educa glne l purpo ses only. ) THIS TEST WAS PERFO RMED AT: [facility] [id number] [place], [place] PATRI LUCINA RENO MD,P HD Not Available [facility] [address] [place], [address], 01/27/2021 17:16:45 01/29/20 20 10/01/2017 MAMMO , diagn ostic , bilat eral No observ ation record ed. [email or web address] Not Available 15:43:35 02/11/20 20 02/11/2020 MRI, brain , w/o contr ast MRI BRAIN WITHOU T IV CONTRA ST MRI LUMBAR SPINE WITHOU T IV CONTRA ST CLINIC AL INFORM ATION: Migrai ne with aura. Lumbar radicu lopath y. COMPAR CASEY: None TECHNI QUE: Multip lanar multis equenc e MR imagin g of the brain and lumbar spine obtain ed withou t IV contra st. FINDIN GS: BRAIN MRI: There is no hydroc ephalu s, extra- axial surfac e collec tion, or hernia tion. No parenc hymal signal abnorm ality. The major flow voids at the skull base are preser kwasi. There is no acute infarc t on diffus ion-we ighted imagin g. There is no intrac ranial hemorr marika on the gradie nt recall ed echo acquis ition. The midlin e struct ures are normal . The cerebe llar tonsil s are normal ly positi oned. The cerebe llum and brains tem are normal . The cranio cervic al juncti on is normal . Osseou s marrow signal intens ity is homoge nous. The visual ized soft tissue s are unrema rkable . LUMBAR SPINE MRI: There are 5 nonrib -beari ng lumbar -type verteb ral bodies . Lumbar alignm ent is mainta ined. The verteb ral body height s are preser kwasi. There is mild disc volume loss and there is disc desicc ation at L5-S1. The remain ing disc volume s are preser kwasi and the remain ing discs remain well-h ydrate d. There is no bone marrow edema. There are no acute fractu res. The conus termin ates at the L1-L2 level. There are no signif icant soft tissue findin gs. At L3-L4, there is a left latera l disc protru hubert that result s in modera te left-s ided forami nal stenos is with probab le mild mass effect on the exitin g left L3 nerve root. At L4-L5 there is a small diffus e annula r disc bulge with a superi mposed left forami nal disc protru hubert result ing in modera te left forami nal stenos is with probab le mild mass effect on the exitin g left L4 nerve root. At L5-S1, there is a diffus e annula r disc bulge the superi mposed shallo w centra l disc protru hubert associ ated with an annula r fissur e that mildly narrow s the centra l canal. There is no forami nal stenos is. IMPRES HUBERT: - Unrema rkable MRI of the brain. - At L3-L4 and at L4-L5, there are left latera l disc protru sions that result in modera te left forami nal stenos is at these levels with probab le mass effect on the exitin g left nerve roots at these levels . - At L5-S1, there is a shallo w centra l disc protru hubert associ ated with annula r fissur e that mildly narrow s the centra l canal. No forami nal stenos is. Dictat ed on 144 by Reece Baird MD Transc ribed on 1441 by Theo Carmona cribe Sign by Reece Baird MD on 6836 Sign by: __ Reece Baird MD [facility] [address] [place], [address], 02/27/2020 08:52:54 02/11/2002/11/2020 MRI, lumba r spine , w/o contr ast MRI BRAIN WITHOU T IV CONTRA ST MRI LUMBAR SPINE WITHOU T IV CONTRA ST CLINIC AL INFORM ATION: Migrai ne with aura. Lumbar radicu lopath y. COMPAR CASEY: None TECHNI QUE: Multip lanar multis equenc e MR imagin g of the brain and lumbar spine obtain ed withou t IV contra st. FINDIN GS: BRAIN MRI: There is no hydroc ephalu s, extra- axial surfac e collec tion, or hernia tion. No parenc hymal signal abnorm ality. The major flow voids at the skull base are preser kwasi. There is no acute infarc t on diffus ion-we ighted imagin g. There is no intrac ranial hemorr marika on the gradie nt recall ed echo acquis ition. The midlin e struct ures are normal . The cerebe llar tonsil s are normal ly positi oned. The cerebe llum and brains tem are normal . The cranio cervic al juncti on is normal . Osseou s marrow signal intens ity is homoge nous. The visual ized soft tissue s are unrema rkable . LUMBAR SPINE MRI: There are 5 nonrib -beari ng lumbar -type verteb ral bodies . Lumbar alignm ent is mainta ined. The verteb ral body height s are preser kwasi. There is mild disc volume loss and there is disc desicc ation at L5-S1. The remain ing disc volume s are preser kwasi and the remain ing discs remain well-h ydrate d. There is no bone marrow edema. There are no acute fractu res. The conus termin ates at the L1-L2 level. There are no signif icant soft tissue findin gs. At L3-L4, there is a left latera l disc protru hubert that result s in modera te left-s ided forami nal stenos is with probab le mild mass effect on the exitin g left L3 nerve root. At L4-L5 there is a small diffus e annula r disc bulge with a superi mposed left forami nal disc protru hubert result ing in modera te left forami nal stenos is with probab le mild mass effect on the exitin g left L4 nerve root. At L5-S1, there is a diffus e annula r disc bulge the superi mposed shallo w centra l disc protru hubert associ ated with an annula r fissur e that mildly narrow s the centra l canal. There is no forami nal stenos is. IMPRES HUBERT: - Unrema rkable MRI of the brain. - At L3-L4 and at L4-L5, there are left latera l disc protru sions that result in modera te left forami nal stenos is at these levels with probab le mass effect on the exitin g left nerve roots at these levels . - At L5-S1, there is a shallo w centra l disc protru hubert associ ated with annula r fissur e that mildly narrow s the centra l canal. No forami nal stenos is. Dictat ed on 1440 by Reece Baird MD Transc ribed on 1440 by Theo Carmona cribe Sign by Reece Baird MD on 1506 Sign by: __ Reece Baird MD [address], [place], [address], 02/24/2020 15:44:07 01/19/20 21 01/18/2021 XR, shoul jonna, 2 or more view No observ ation record ed. [email or web address] [facility] - [place] [address], [place], [address], 01/25/2021 15:39:08 Result Notes Documentation Provider Name and Address Organization Details Recorded Time Mri, Brain, W/o Contrast : MRI BRAIN WITHOUT IV CONTRAST MRI LUMBAR SPINE WITHOUT IV CONTRAST CLINICAL INFORMATION: Migraine with aura. Lumbar radiculopathy. COMPARISON: None TECHNIQUE: Multiplanar multisequence MR imaging of the brain and lumbar spine obtained without IV contrast. FINDINGS: BRAIN MRI: There is no hydrocephalus, extra-axial surface collection, or herniation. No parenchymal signal abnormality. The major flow voids at the skull base are preserved. There is no acute infarct on diffusion-weighted imaging. There is no intracranial hemorrhage on the gradient recalled echo acquisition. The midline structures are normal. The cerebellar tonsils are normally positioned. The cerebellum and brainstem are normal. The craniocervical junction is normal. Osseous marrow signal intensity is homogenous. The visualized soft tissues are unremarkable. LUMBAR SPINE MRI: There are 5 nonrib-bearing lumbar-type vertebral bodies. Lumbar alignment is maintained. The vertebral body heights are preserved. There is mild disc volume loss and there is disc desiccation at L5-S1. The remaining disc volumes are preserved and the remaining discs remain well-hydrated. There is no bone marrow edema. There are no acute fractures. The conus terminates at the L1-L2 level. There are no significant soft tissue findings. At L3-L4, there is a left lateral disc protrusion that results in moderate left-sided foraminal stenosis with probable mild mass effect on the exiting left L3 nerve root. At L4-L5 there is a small diffuse annular disc bulge with a superimposed left foraminal disc protrusion resulting in moderate left foraminal stenosis with probable mild mass effect on the exiting left L4 nerve root. At L5-S1, there is a diffuse annular disc bulge the superimposed shallow central disc protrusion associated with an annular fissure that mildly narrows the central canal. There is no foraminal stenosis. IMPRESSION: - Unremarkable MRI of the brain. - At L3-L4 and at L4-L5, there are left lateral disc protrusions that result in moderate left foraminal stenosis at these levels with probable mass effect on the exiting left nerve roots at these levels. - At L5-S1, there is a shallow central disc protrusion associated with annular fissure that mildly narrows the central canal. No foraminal stenosis. Dictated on 02/11/20 144 by Isak Baird MD Transcribed on 02/11/20 1441 by Osei Carmonacribkandi Sign by Isak Baird MD on 02/11/20 1506 Sign by: Isak Baird MD, [place] - [facility] 02/27/2020 08:52:54 Mri, Lumbar Spine, W/o Contrast : MRI BRAIN WITHOUT IV CONTRAST MRI LUMBAR SPINE WITHOUT IV CONTRAST CLINICAL INFORMATION: Migraine with aura. Lumbar radiculopathy. COMPARISON: None TECHNIQUE: Multiplanar multisequence MR imaging of the brain and lumbar spine obtained without IV contrast. FINDINGS: BRAIN MRI: There is no hydrocephalus, extra-axial surface collection, or herniation. No parenchymal signal abnormality. The major flow voids at the skull base are preserved. There is no acute infarct on diffusion-weighted imaging. There is no intracranial hemorrhage on the gradient recalled echo acquisition. The midline structures are normal. The cerebellar tonsils are normally positioned. The cerebellum and brainstem are normal. The craniocervical junction is normal. Osseous marrow signal intensity is homogenous. The visualized soft tissues are unremarkable. LUMBAR SPINE MRI: There are 5 nonrib-bearing lumbar-type vertebral bodies. Lumbar alignment is maintained. The vertebral body heights are preserved. There is mild disc volume loss and there is disc desiccation at L5-S1. The remaining disc volumes are preserved and the remaining discs remain well-hydrated. There is no bone marrow edema. There are no acute fractures. The conus terminates at the L1-L2 level. There are no significant soft tissue findings. At L3-L4, there is a left lateral disc protrusion that results in moderate left-sided foraminal stenosis with probable mild mass effect on the exiting left L3 nerve root. At L4-L5 there is a small diffuse annular disc bulge with a superimposed left foraminal disc protrusion resulting in moderate left foraminal stenosis with probable mild mass effect on the exiting left L4 nerve root. At L5-S1, there is a diffuse annular disc bulge the superimposed shallow central disc protrusion associated with an annular fissure that mildly narrows the central canal. There is no foraminal stenosis. IMPRESSION: - Unremarkable MRI of the brain. - At L3-L4 and at L4-L5, there are left lateral disc protrusions that result in moderate left foraminal stenosis at these levels with probable mass effect on the exiting left nerve roots at these levels. - At L5-S1, there is a shallow central disc protrusion associated with annular fissure that mildly narrows the central canal. No foraminal stenosis. Dictated on 02/11/20 1441 by Isak Baird MD Transcribed on 02/11/20 1441 by Osei Rochestercribkandi Sign by Isak Baird MD on 02/11/20 1506 Sign by: Isak Baird MD, [place] - [facility] 02/24/2020 15:44:07 Problems Name Problem SNOMED Code Status Onset Date Resolution Date Notes Provider Name and Address Organization Details Recorded Time Uterine leiomyom a 86315406 Completed 201705/31/2018 LUDWIN Valle [facility] 0 14:52:30 Pain of left wrist 69236501222 9102 Completed 201709/14/2017 LUDWIN [facility] 8 09:40:01 Pain in right hand 02113874893 9109 Completed 201712/23/2018 LUDWIN Valle [facility] 9 11:38:03 Abnormal uterine bleeding 25055064128 100 Completed 201702/11/2018 Removal Reason: Resected submucus LUDWIN Valle [facility] 8 08:58:45 Uterine leiomyom a 46825267 Completed 201901/14/2020 LUDWIN Valle [facility] 0 14:52:30 Problem Notes Documentation Provider Name and Address Organization Details Recorded Time Educational Adviser Consult Note : [id number] [address], [facility] [id number], LISA A (id #[id number], : 1980) Documents sent via fax will include the following message: This fax may contain sensitive and confidential personal health information that is being sent for the sole use of the intended recipient. Unintended recipients are directed to securely destroy any materials received. You are hereby notified that the unauthorized disclosure or other unlawful use of this fax or any personal health information is prohibited. To the extent patient information contained in this fax is subject to 42 CFR Part 2, this regulation prohibits unauthorized disclosure of these records. If you received this fax in error, please visit [email or web address] to notify the sender and confirm that the information will be destroyed. If you do not have internet access, please call to notify the sender and confirm that the information will be destroyed. Thank you for your attention and cooperation. [ID:[id number]][facility], [facility]. [address] [place] [address] , Zgsn: 1RE: Shelia Childress, : 1980, PT ID #[id number] [place] I would like to thank you for referring Shelia Childress to our practice for consultation and evaluation on 01/24/2021. I have enclosed a copy of the office evaluation for your records. Once again, thank you for allowing me to participate in the care of this patient. Sincerely, Electronically Signed by: JULIA DEGROOT MD Encounter Reason/Date joint pain, New Patient 01/24/2021 - 02:00PM - Rheumatology Office History of Present Illness Her right shoulder has been hurting since August. She thought it was related to lifting something heavy. She has had right hip pain, bilateral knee pain(she believes it is related to her back). She is having numbness running down her legs. She has numbness in the right hand and pain in the right wrist. Activity is making her joint worst. PMH: DJD in spine,EpiscleritisPSH: Hysterectomy(endometrial) OB hx: No SH: No toxic habits. No recent travel. No pets. No tick/bug bites FH: Mother(RA) Previous Rheum Meds:Review of SystemsAdditionally reports: Gen: No fevers,chills,weight loss/gain HEENT: No nasal/oral ulcerations,dysphagia,odynoph agia,dry mouth/dry eyes,blurry vision CV: No palpitations,chest pain on deep inspiration Pulm: No cough,SOB,ORR GI: No diarrhea,no nausea/vomiting,GERD,constipa tion Skin: No photosensitive rash,raynauds,LAD, alopecia MSK: As per HPI Neuro: No headaches Physical ExamPatient is a 40-year-old female. Gen: Well appearing in no distress HEENT: No nasal/oral ulcerations CV:RRR no murmurs Pulm: CTA b/l GI: S,NT,ND,BS+ MSK: Margi test positive in right wrist. 3/5 in bilateral thigh flexors Skin: No alopecia, rash or hyperpigmentation Neuro: No sensory deficit or weaknessProcedure DocumentationNone recordedAssessment/PlanI spent a total of 60 minutes on the same date of service providing mdma-hz-ucbd and pki-jafm-kc-face patient care. 1. Anti-nuclear factor positive- No clear evidence for autoimmune disease-Will r/o scleroderma,SLE,thyroid disease,Sjogrens with work up below R76.8: Other specified abnormal immunological findings in serum CATALINA SCREEN, SERUM THYROID PEROXIDASE ANTIBODY HIV (1+2) AB SCREEN, SERUM HEPATITIS PANEL ANTIPHOSPHOLIPID ANTIBODY PANEL, SERUM CATALINA SCREEN, SERUM C3 + C4 (COMPLEMENT), SERUM CBC W/ DIFF COMPREHENSIVE METABOLIC PANEL URINE TOTAL PROTEIN/CREATININE URINALYSIS SCL-70 ANTIBODY CENTROMERE AB, SERUM 2. Shoulder pain- Likely impingement syndrome as their is no weakness or dropping of the arm-Mobic 15mg PO qD PRN as needed for pain-If symptoms persist would consider steroid acnxlehfyY60.519: Pain in unspecified shoulder meloxicam 15 mg tablet - Take 1 tablet(s) every day by oral route as needed. Qty: 90 tablet(s) Refills: 0 Pharmacy: [id number] 3. Lumbar radiculopathy-Given previous MRI and proximal muscle weakness concerning for progressive radiculopathy given weakness in thigh flexors-PT would prefer to be referred to orthopedist in PzyepomgigvdvF40.16: Radiculopathy, lumbar region ORTHOPEDIC SURGEON REFERRAL - Note to Provider: Progressive lumbar radiculopathy 2/2 lateral disc protrusion worsening proximal muscle weakness. 4. Radial styloid tenosynovitis-Pt with positive margi on the right-Advised use of cock up splint-Mobic as above. If symptoms still present would consider injecting around tendon.M65.4: Radial styloid tenosynovitis [de Quervain] Return to Office Julia Degroot MD for Maria M DUNBAR at Rheumatology Office on 02/24/2021 at 01:00 PM Adriel Macedo MD for CPE at [facility] on 03/01/2021 at 03:15 PM to see Adriel Macedo MD for CPE at [facility] on or around 03/02/2021 LUDWIN Zavaleta - Marco [facility] 01/25/2021 08:18:39 Educational Adviser Consult Note : [id number] [address] [place] [address]MRHDI, LISA A (id #[id number], : 1980) Documents sent via fax will include the following message: This fax may contain sensitive and confidential personal health information that is being sent for the sole use of the intended recipient. Unintended recipients are directed to securely destroy any materials received. You are hereby notified that the unauthorized disclosure or other unlawful use of this fax or any personal health information is prohibited. To the extent patient information contained in this fax is subject to 42 CFR Part 2, this regulation prohibits unauthorized disclosure of these records. If you received this fax in error, please visit [email or web address] to notify the sender and confirm that the information will be destroyed. If you do not have internet access, please call to notify the sender and confirm that the information will be destroyed. Thank you for your attention and cooperation. [ID:[id number]][facility], [facility]. [address] [place] [address] [address] [place] [address] , Mpuh: 02/24/2021E: Shelia Childress, : 1980, PT ID #[id number] Macedo, I would like to thank you for referring Shelia Childress to our practice for consultation and evaluation on 02/24/2021. I have enclosed a copy of the office evaluation for your records. Once again, thank you for allowing me to participate in the care of this patient. Sincerely, Electronically Signed by: JULIA DEGROOT MD Encounter Reason/DateNone recorded 02/24/2021 - 01:00PM - Rheumatology Office History of Present Illness 40 y.o F with positivity and back pain presents for follow up She notes that when she went out in the sun 2 weeks ago she had a redness in a malar distribution on the face which has since improved. She is using SPF 50 sunscreen. She has not seen orthopoedics regarding her back as her appt is March 29. She does report some fatigue,hypertenseitivity to touch and global weakness.Review of SystemsAdditionally reports: Gen: No fevers,chills,weight loss/gain HEENT: No nasal/oral ulcerations,dysphagia,odynoph agia,dry mouth/dry eyes,blurry vision CV: No palpitations,chest pain on deep inspiration Pulm: No cough,SOB,ORR GI: No diarrhea,no nausea/vomiting,GERD,constipa tion Skin: No photosensitive rash,raynauds,LAD, alopecia MSK: As per HPI Neuro: No numbness/tingling,weakness,he adaches Physical ExamPatient is a 40-year-old female. Gen:Well appearing in no distress on videoSkin: No obvious malar rash on videoMSK: No synovitis of the hands on videoProcedure DocumentationNone recordedAssessment/PlanThe service is provided via Teleus which is an audio visual platform. I personally saw and spoke to the patient. Pt gave consent for this service. I was at the office. Patient was home. Office Supervisor, patient and I were the only people involved with the TeleHealth visit. This service was medically necessary due to underlying medical condition. Time spent in preparation, evaluation, and management of the patient = 22 minutes 1. Shoulder pain- Unchanged from previous visit.-Pt will follow up with ortho for injections M25.519: Pain in unspecified shoulder 2. Lumbar radiculopathy-Pt reports same pain-Ortho follow up in March-Trial of YygxbavyY34.16: Radiculopathy, lumbar region 3. Fatigue- Likely FMS syndrome given global fatigue.-Trial of flexeril to aid lower back pain and improve sleep.R53.83: Other fatigue 4. Radial styloid tenosynovitis-Pt currently wearing splint and has improved symptoms.-Advised use of thumb spica icdxgeZ41.4: Radial styloid tenosynovitis [de Quervain] Return to Office Adriel Macedo MD for CPE at [facility] on 03/01/2021 at 03:15 PM to see Adriel Macedo MD for CPE at [facility] on or around 03/02/2021 [facility]aval[facility] 02/24/2021 15:52:00 Procedures Surgical History Date Name Laterality Status Provider Name and Address Organization Details Recorded Time 05/31/20 18 total hysterectomy completed [facility] 05/31/2018 16:50:53 02/08/20 18 HYSTEROSCOPY,LEANDER GICAL WITH REMOVAL OF LEIOMYOMATA (SURG) completed [facility] 02/07/2018 16:10:45 01/30/20 18 Saline Infusion Sonogram (SIS) completed [facility] 01/29/2018 15:52:51 10/02/19 18 Pelvic Transvaginal Non-OB Ultrasound completed Francisco [facility] 10/01/2017 16:31:41 06/18/19 18 Date of Last Pap Smear [facility] 01/14/2020 14:53:15 06/18/19 00 Bunionectomy completed Karla Zachariah [place] - [facility] 09/14/2017 08:44:52 Imaging Results None recorded. Procedure Notes None recorded. Medical Equipment None Reported. Allergies Allergen ID Allergen Name Allergen Category Reaction Reaction Severity Criticality Documentation Date Start Date Code Code System Note Provider Name and Address Organization Details Recorded Time 925428 gabapenti n medicatio n confusion moderate Not available 12/30/2020 15206 RxNorm Adriel Macedo MD [address] [place] [address],[address], [place], [address], [place] [facility] 1 10:34:44 Medications Name Sig Start Date Stop Date Status Note LastModified by Organization Details LastModified Time unlisted medicatio n 05/22 completed polio vaccine / manually faxed Not Available Not Available Not Available amoxicill in 500 mg capsule 05/22 completed Not Available Not Available Not Available Stool Softener 100 mg capsule Take 1 capsule every day by oral route. 05/22 completed Not Available Not Available Not Available azithromy tamiko 250 mg tablet TAKE 2 TABLETS BY MOUTH ON DAY 1 AND THEN TAKE 1 TABLET BY MOUTH ONCE A DAY ON DAY 2 THROUGH DAY 5 07/01 completed Not Available Not Available Not Available ibuprofen 800 mg tablet Take 1 tablet 3 times a day by oral route for 30 days. 12/23 completed Not Available Not Available Not Available fluconazo le 150 mg tablet 12/23 completed Not Available Not Available Not Available meloxicam 15 mg tablet TAKE 1 TABLET BY MOUTH EVERY DAY NEEDED active Not Available Not Available No t Available prednison e 20 mg tablet Day 1-3 take one tablet 3x/day, Day 4-6 take one tablet 2x/day, Day 7-9 take one tablet 1x/day. ALWAYS take with food. 01/28 completed Not Available Not Available Not Available ofloxacin 0.3 % ear drops 07/01 completed Not Available Not Available Not Available hydromorp giancarlo 2 mg tablet 12/23 completed Not Available Not Available Not Available lorazepam 0.5 mg tablet TAKE 1 TABLET BY MOUTH THREE TIMES A DAY NEEDED 12/30 completed Not Available Not Available Not Available pantopraz ole 40 mg tablet,de layed release TAKE 1 TABLET BY MOUTH EVERY DAY 12/30 completed Not Available Not Available Not Available neomycin- polymyxin -dexameth 3.5 mg/mL-10, 000 unit/mL-0 .1% eye drops INSTILL 1 DROP INTO AFFECTED EYE(S) BY OPHTHALM IC ROUTE EVERY 3-4 HOURS 01/28 completed Not Available Not Available Not Available Alrex 0.2 % eye drops,elissa pension PUT 1 DROP IN AFFECTED EYE 4 TIMES A DAY FOR 1 WEEK 01/28 completed Not Available Not Available Not Available misoprost ol 100 mcg tablet Take 1 tablet every day by oral route as directed for 1 day. 02/07 completed Not Available Not Available Not Available Provera 10 mg tablet Take 1 tablet every day by oral route as directed for 10 days. 06/04 completed Not Available Not Available Not Available hydroxyzi ne HCl 25 mg tablet TAKE 1 TABLET 3 TIMES A DAY BY ORAL ROUTE NEEDED. 2020 active Not Available Not Available Not Avai lable gabapenti n 100 mg capsule TAKE 1 CAPSULE BY MOUTH THREE TIMES A DAY NEEDED 12/30 completed Not Available Not Available Not Available ibuprofen 600 mg tablet TAKE 1 TABLET BY MOUTH THREE TIMES A DAY NEEDED FOR 10 DAYS active Not Available Not Available No t Available fluticaso ne propionat e 50 mcg/actua tion nasal spray,elissa pension 07/01 completed Not Available Not Available Not Available escitalop sarika 10 mg tablet TAKE 1 TABLET BY MOUTH ONCE DAILY DIRECTED FOR 28 DAYS 07/01 completed Not Available Not Available Not Available cyclobenz aprine 5 mg tablet TAKE 1 TABLET NEEDED BY ORAL ROUTE AT BEDTIME. active Not Available Not Available No t Available tranexami c acid 650 mg tablet Take 2 tablets 3 times a day by oral route as directed for 5 days. 02/15 completed Not Available Not Available Not Available Afluria Qd 2019-20 (36 mos up)(PF)60 mcg (15 mcg x4)/0.5 mL IM syringe TO BE ADMINIST ERED BY PHARMACI ST FOR IMMUNIZA TION 05/22 completed Not Available Not Available Not Available Fluzone Quad (PF) 60 mcg (15 mcg x 4)/0.5 mL IM syringe PHARMACY ADMINIST ERED 12/30 completed Not Available Not Available Not Available Vitals Date Recorded Body height Body temperature Body mass index (BMI) Body weight Respiratory rate Heart rate Oxygen saturation Oxygen saturation in Arterial blood by Pulse oximetry Systolic And Diastolic Provider Name and Address Organization Details Last Updated DateTime 1 162.56 cm 97.7 [degF] 25.4 kg/m2 12879.6 7 g 16 /min 78 /min 98 % 98 % 120/76 mm[Hg] Mariangel John [facility] 1 10:26:13 Date Recorded Body height Body mass index (BMI) Body weight Oxygen saturation Oxygen saturation in Arterial blood by Pulse oximetry Heart rate Systolic And Diastolic Provider Name and Address Organization Details Last Updated DateTime 1 162.56 cm 25.1 kg/m2 36091.2 g 99 % 99 % 82 /min 120/78 mm[Hg] Lise Curtis [facility] 1 14:02:59 Date Recorded Body height Body mass index (BMI) Body weight Respiratory rate Heart rate Body temperature Oxygen saturation Oxygen saturation in Arterial blood by Pulse oximetry Systolic And Diastolic Provider Name and Address Organization Details Last Updated DateTime 0 162.56 cm 24.4 kg/m2 55973.1 2 g 16 /min 81 /min 97.8 [degF] 99 % 99 % 107/73 mm[Hg] Bryce bright [facility] 0 13:50:37 Date Recorded Body height Body temperature Respiratory rate Heart rate Oxygen saturation Oxygen saturation in Arterial blood by Pulse oximetry Body mass index (BMI) Body weight Systolic And Diastolic Provider Name and Address Organization Details Last Updated DateTime 0 162.56 cm 97.8 [degF] 16 /min 94 /min 98 % 98 % 24 kg/m2 65011.9 3 g 120/82 mm[Hg] Alicia Maher [facility] 0 15:36:05 Social History Question Answer Notes LastModified by Organizat ion Details LastModified Time Tobacco Smoking Status Never Smoker Karla chris, [facility], [facility] 09/14/2017 08:42:21 Do You Have An Advance Directive? Yes Information not available 01/24/2021 Are You Blind Or Do You Have Difficulty Seeing? No Information not available 01/24/2021 What Is Your Level Of Caffeine Consumption? Moderate Every Day [email or web address] Information not available 09/14/2017 In The 14 Days Before Symptom Onset, Have You Had Close Contact With A Laboratory-confir med COVID-19 While That Case Was Ill? No Information not available 01/24/2021 In The 14 Days Before Symptom Onset, Have You Had Close Contact With A Person Who Is Under Investigation For COVID-19 While That Person Was Ill? No Information not available 01/24/2021 Have You Been To An Area Known To Be High Risk For COVID-19? No Information not available 01/24/2021 Are You Deaf Or Do You Have Serious Difficulty Hearing? No Information not available 01/24/2021 What Type Of Diet Are You Following? REGULAR [email or web address] Information not available 09/14/2017 Drugs Abused Denies Information not available 01/24/2021 Live Alone Or With Others? Alone Information not available 01/24/2021 General Health- Any Urinary Incontinence? No [email or web address] Information not available 09/14/2017 General Health Good [email or web address] Informati on not available 09/14/2017 Marital Status Single Informatio n not available 01/24/2021 Do You Have A Medical Power Of Manager Critical Care Unit? Yes Information not available 01/24/2021 What Was The Date Of Your Most Recent Tobacco Screening? 01/24/2021 Information not available 01/24/2021 How Many Children Do You Have? 0 Information not available 05/22/2019 Are You Sexually Active? No Information not available 09/14/2017 How Much Tobacco Do You Smoke? No Information not available 01/24/2021 General Stress Level Low [email or web address] Information not available 09/14/2017 Do You Have Difficulty Walking Or Climbing Stairs? No Information not available 01/24/2021 Sex: Unknown Functional Status Question Answer Note LastModified by Organizat ion Details LastModified Time What is your level of alcohol consumption? Occasional Information not available 01/24/2021 Do you or have you ever used smokeless tobacco? Never used smokeless tobacco Information not available 01/24/2021 Are you currently employed? No Information not available 01/24/2021 Do you have difficulty doing errands alone? 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 No Information not available 01/24/2021 Do you or have you ever used e-cigarettes or vape? Never used electronic cigarettes Information not available 01/24/2021 What is your exercise level? None Information not available 01/24/2021 Mental Status Question Answer Note LastModified by Organization D etails LastModified Time Do you have difficulty concentrating, remembering or making decisions? No Information no t available 01/24/2021 Family History Relationship Description Onset Age of this Age Resolved Age Notes LastModified by Organization Details LastModified Time Father Hypertensive disorder [email or web address] Not available 2018 10:36:53 Father Malignant neoplasm of prostate [email or web address] Not available 2018 10:36:53 Mother Hypertensive disorder [email or web address] Not available 2018 10:36:53 Mother Diabetes mellitus Not available 08/18 08:41:58 Mother Rheumatoid arthritis [email or web address] Not available 08/18 08:42:14 Mother Arthritis Not available 05/22/2019 10:36:53 Paternal Aunt Kidney disease [email or web address] Not available 2018 10:36:53 Paternal Grandmother Arthritis [email or web address] Not available 10/2018 10:36:53 Medical History Condition Response Gout N High Blood Pressure N Thyroid problems N Asbestos exposure N Colonoscopy N Glaucoma N COPD N Migraine Headaches N Kidney disease or problem N Bleeding tendencies N Seizures, convulsions, epilepsy N Depression, mental illness N Hemorrhoids N Obesity N Angina pectoris N Arthritis N Cancer N Stroke N High cholesterol N Blood clotting in lungs or legs N Venereal disease N Vitamin deficiency N Arrhythmia N Fibromyalgia N Jaundice or liver disease N Intestinal Problems - Ulcer, Hiatal Shai ia N Rheumatic fever N Congestive heart failure N Acid Reflux N Colitis N Osteopenia or osteoporosis N Gallstones N Any complications or ill effects related to an anesthetic N Palpitation N Anxiety disorder N Auto-immune disease N Anemia N Diabetes N Bladder disease N Alcoholism/Substance Abuse N Lung disease (pneumonia, TB, emphysema) N Fainting spells N Heart disease N Diverticulitis N Heart Attack N Breast disease N Sickle cell disease N Any blood relative who had anesthesia co mplications N Sleep Apnea N Gynecological History Statement/Question Response Do you have pain or bleeding during or a fter sex? N Age at Menarche 15 Date of Last Mammogram Flow Moderate Date of LMP 03/18/2018 STIs/STDs N Do you do self breast exams? Y Type of Menopause Surgical Have you ever taken control pills/ injections? Y Did you breastfeed? N Date of Last Pap Smear? Have you ever taken hormone replacement? N Do you have severe abdominal pain/cramps ? Y Abnormal Pap N Are you currently ? N Are you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
== END 2024-12-30 10:21 | disposition home or self-care (01) ==
LOC: HO.RHES 09:27
PROVIDERS: Visit Provider Internal Medicine Rheumatology
DX: M62.81 Muscle weakness (generalized) (principal); M79.7 Fibromyalgia
CPT/HCPCS: 99214

== ENCOUNTER 2024-12-30 09:26 | Outpatient (REF) | payer OTHER, SELFPAY ==
[2024-12-30 13:57] LABS: Baso%MD 0.5 %; Eos%MD 0.7 %; Hematocrit 40.5 % (37.0-47.0); Hemoglobin 13.6 g/dl (12.0-16.0); IG%MD 0.2 %; Lymph%MD 45.6 %; Mean Corpuscular HGB Conc 33.6 g/dl (31.0-35.0); Mean Corpuscular Hemoglobin 29.7 pg (27.0-33.0); Mean Corpuscular Volume 88.4 fL (80.0-98.0); Mono%MD 6.4 %; NRBC Abs Auto 0.000 X10*3/uL (0.0-0.012); NRBC Pct Auto 0.0 /100WBC (0.0-0.2); Neut%MD 46.6 %; Platelet Count 273 X10*3/uL (160-400); Red Blood Count 4.58 X10*6/uL (4.20-5.50); White Blood Count 4.3 X10*3/uL (4.8-10.8)
[2024-12-30 14:36] LABS: Alanine Aminotransferase < 6 U/L (0-31); Aspartate Amino Transferase 24 U/L (5-31); Estimated Glomerular Filt Rate > 60
[2024-12-30 16:36] LABS: Band Neutrophils Percent 1 % (3-5); Eosinophils Percent Manual 1 % (0-4); Lymphocytes Absolute Manual 1.8 X10*3/uL (1.2-4.9); Lymphocytes Percent Manual 42 % (20-40); Monocytes Absolute Manual 0.3 X10*3/uL (0.1-1.2); Monocytes Percent Manual 6 % (2-11); Neutrophils Absolute Manual 2.2 X10*3/uL (2.0-8.3); Neutrophils Percent Manual 50 % (45-73)
[2024-12-30 16:37] LABS: RBC Morphology NORMAL
[2024-12-30 18:04] LABS: Appearance Urine Clear; Glucose Urine UA Negative (Negative); PH 6.0 (5.0-9.0); Specific Gravity - Urine <= 1.005 (1.005-1.025)
[2024-12-30 18:29] LABS: Total Protein Urine Random < 7 mg/dL (<12)
[2025-01-02 08:23] LABS: Proteinase 3 PR3 Antibodies <1.0 AI
[2025-01-09 07:47] LABS: SRP Ab <11
[2025-01-09 07:49] LABS: MDA5 Ab <11
[2025-01-09 07:54] LABS: SM/Ribonucleoprotein Ab <1.0 NEG; Smith Protein <1.0 NEG
[2025-01-09 07:55] LABS: NXP-2 (MJ) Ab <11
== END 2024-12-30 09:27 | disposition home or self-care (01) ==
LOC: HO.HKASLDS 09:26
PROVIDERS: Visit Provider Internal Medicine Rheumatology
DX: M62.81 Muscle weakness (generalized) (principal); M79.7 Fibromyalgia; R76.0 Raised antibody titer; Z79.899 Other long term (current) drug therapy
CPT/HCPCS: 36415; 81001; 82085; 82550; 82565; 82570; 84156; 84182; 84450; 84460; 85007; 85027; 85652; 86021; 86140; 86160; 86225; 86235

== ENCOUNTER 2025-01-14 08:22 | Outpatient (AMB) | payer OTHER, SELFPAY ==
--- NOTE | 2025-01-14 08:27 | MHC.OFFVIS ---
Vital Signs 01/14/25 08:28 Height 5 ft 6.14 in Weight 147 lb 8 oz BMI 23.7 BP 120/80 Blood Pressure Location Rt brachial Position Sitting Pulse 77 Pulse Source Pulse Oximeter Pulse Oximetry (%) 98 Oxygen Delivery Method Room Air Intake Visit Reasons: discuss labs Intake Note: patient presents today to discuss labs. Allergies acetaminophen (From Tylenol) Allergy (Mild, Verified 01/14/25 08:27) Hives gabapentin Allergy (Mild, Verified 01/14/25 08:27) Anxiety morphine Allergy (Mild, Verified 01/14/25 08:27) Irritable HPI HPI discuss labs: Details: In the past she was seeing a meal cooker who treated her for lupus with prednisone for 2 years. She gained weight. She has been experiencing weakness and pain in her shoulder and hip girdle for at least 5 years. She is working with PT to improve range of motion and strength, which has been helpful. No new rash. [facility] Medical History Positive (antinuclear antibody) Surgical History History of hysterectomy Physical Exam Vital Signs: Last Vital Signs Pulse 77 01/14/25 08:28 BP 120/80 01/14/25 08:28 Pulse Ox 98 01/14/25 08:28 Oxygen Delivery Method Room Air 01/14/25 08:28 BMI result Body Mass Index 23.7 Const Other: General: Comfortable CVS: RRR Respiratory: clear to auscultation bilaterally. Good respiratory effort Skin: No lesions seen MSK: Diffuse allodynia of upper and lower extremities but less intense compared to last visit. No synovitis. 5/5 power upper extremities. Bilateral Hip flexor power 4/5, she is unable to dorsiflex her ankles. Hip extensors, knee flexors and extensors and ankle plantar flexors power 5/5. She is able to ambulate without aids. Assessment & Plan Assessment & Plan (1) Muscle weakness of lower extremity: Comment: Progressive worsening bilateral lower extremity weakness of both proximal and distally is concerning for idiopathic inflammatory myositis in setting of mild elevation of CK, and 1:320. She has hypocomplementemia C3 and C4. Myositis specific panel and SLE specific antibodies were negative. We discussed further workup for idiopathic inflammatory myositis. Answered patient's and her 's questions to the satisfaction. She has diffuse allodynia on exam, which can be seen with fibromyalgia but would not explain her weakness and lab abnormalities. Code(s): M62.81 - Muscle weakness (generalized) Category: Medical Plan: Right femur MRI with and without contrast ordered Additional labs for further workup of myositis ordered EMG of lower extremities is scheduled for February Return to clinic in 3 months or sooner if needed Orders: Orders T Spot TB Today M62.81 - Muscle weakness (generalized) Hepatitis B,C Profile Today M6.81 - Muscle weakness (generalized) Erythrocyte Sedimentation Rate Today Z79.899 - Other half-way (current) drug therapy C Reactive Protein Today M62.81 - Muscle weakness (generalized) Creatine Kinase Total Today M62.81 - Muscle weakness (generalized) Aldolase Today M6.81 - Muscle weakness (generalized) MR femur RT wo/w con Today M6.81 - Muscle weakness (generalized) Coding Level of Care Code Est Pt Level 4 (20062) Complex EM visit Add On G2211 Diagnoses Muscle weakness of lower extremity M62.81
[2025-01-14 08:28] VITALS: BP 120/80; PULSE 77; O2SAT 98; BMI 23.7
--- OUTSIDE RECORDS SUMMARY | 2025-01-14 08:30 | XMS_ITS | Clinical Summary ---
Author Organization [facility] Address [address] [place] [address] Care Team Providers Care Stock Clipper Name Role Phone Unavailable Primary Care Provider [...]
--- OUTSIDE RECORDS SUMMARY | 2025-01-14 08:30 | XMS_ITS | Encounter Summary ---
Author Organization [facility] Address [address] [place] [id number] Care Team Providers Care Production Utility Worker Name Role Phone Radha Romano APRN Primary Care Provider + Jordan Ken MD Unavailable [phone] Encounter Details Date Type Department Care Team (Late st Contact Info) Description 04/04/2024 Scanned Document [facility] [address] [place] [phone] Radha Romano APRN [address] [place] [address] Social History Tobacco Use Types Packs/Day Years [...] on filedocumented in this encounter Care Teams Production Utility Worker Relationship Specialty Start Date End Date Radha Romano APRN [address] [facility] [address] [place] [address] PCP - General Internal Medicine 06/22/23 Jordan Ken MD 7 [facility] [address] [place] [address] Primary Tank Cleaner Cardiovascular Disease 11/28/23 documented as of this encounter
--- OUTSIDE RECORDS SUMMARY | 2025-01-14 08:30 | XMS_ITS ---
Author Name [facility] Organization Unknown History of Medication Use Medication Directions Dispensed Refills Start Date End Date Stat us rimegepant (Nurtec) 75 mg disintegrating tablet Take 1 tablet (75 mg total) by mouth once as needed for migraine. Maximum: 75 mg/24 hours 11/27/2023 12/28/2023 active propranolol (INDERAL) 20 MG tablet Take 1 tablet (20 mg total) by mouth 2 (two) times a day. 10/09/2023 active ketoconazole (NIZORAL) 2 % shampoo Apply topically 2 (two) times a week. Apply to damp skin, lather, leave on 5 minutes, and rinse 08/23/2023 active celeCOXIB (CeleBREX) 200 MG capsule 08/02/2023 active traZODone (DESYREL) 50 MG tablet Start with 25mg of trazodone once nightly, you may go up to a full tablet (50mg) if you are not sleeping well. 06/22/2023 active cholecalciferol (CHOLECALCIFEROL) 25 MCG (1000 UT) tablet Take 1 tablet (1,000 Units total) by mouth daily. active Magnesium Oxide 250 MG Tab tablet Take 1 tablet (250 mg total) by mouth daily. Take 2 hours apart from other medications; take with food active Allergies Allergen Reaction Severity Comment Documented Date Source Statu s MORPHINE OTHER (SEE COMMENTS) MIGRAINES 11/27/2023 [facility] active ACETAMINOPHEN OTHER (SEE COMMENTS) nausea 08/15/2023 [facility] active GABAPENTIN DELERIUM/CONFUSION/P SY CHOSIS 06/22/2023 [facility] active Problems Problem Status Onset Date Problem Type Date of Resolution Source Pinched nerve in neck active 2021-10-16 ProblemAct [facility] Thumb pain, left active 2023-08-19 ProblemAct [facility] Tendonitis of shoulder active 2021-08-28 ProblemAct [facility] Secondary hyperparathyroidism active 2023-10-09 ProblemAct [facility] Degenerative disc disease, lumbar active 2019-06-24 ProblemAct [facility] Heart palpitations active EncounterDiagnosisAct [facility] Chronic tension-type headache, intractable active 2023-06-22 ProblemAct [facility] Subclinical hypothyroidism active 2023-08-15 ProblemAct [facility] Hip pain active 2019-06-24 ProblemAct [facility] Uterine leiomyoma active 2018-05-14 ProblemAct [facility] Immunizations Vaccine Date Source Lot Number Status Influenza, Unspecified 04/28/2023 [facility] mpleted Covid-19 Vaccine, Unspecified 11/16/2020 [facility] completed Covid-19 Vaccine, Unspecified 10/18/2020 [facility] completed Influenza (AFLURIA/FLUZONE) Inactivated/Split Quadrivalent with Preservative IM 03/01/2020 [facility] completed Influenza, Quadrivalent (FLU ARIX, AFLURIA, FLULAVAL, FLUZONE) Preservative Free IM 03/01/2020 [facility] [id number] completed IPV 04/09/2019 [facility] [id number] completed Influenza (AFLURIA/FLUZONE) Inactivated/Split Quadrivalent with Preservative IM 04/06/2019 [facility] completed Influenza, Quadrivalent (FLU ARIX, AFLURIA, FLULAVAL, FLUZONE) Preservative Free IM 04/06/2019 [facility] [id number] completed Influenza, Quadrivalent (FLU ARIX, AFLURIA, FLULAVAL, FLUZONE) Preservative Free IM 04/12/2018 [facility] [id number] completed Encounters Encounter Type Encounter Reason Primary Diagnosis Location Date Ambulatory Other localized visual field defect, bilateral Other localized visual field defect, bilateral [facility] 03/19/2024 Ambulatory Other specified hypothyroidism Other specified hypothyroidism [facility] 12/25/2023 Ambulatory Palpitations Palpitations [facility] 11/27/2023 Ambulatory Palpitations Pal[facility]ations [facility] 11/27/2023 Ambulatory Migraine, unspecified, not intractable, without status migrainosus Migraine, unspecified, not intractable, without status migrainosus [facility] 11/21/2023 Ambulatory Chronic pain syndrome Chronic pain syndro ny [facility] 10/09/2023 Ambulatory Palpitations Pal[facility]ations [facility] 08/15/2023 Ambulatory Palpitations Pal[facility]ations [facility] 06/22/2023 Care Team Organization Name Specialty Phone Email Start Date End Da te [facility] PCP Residential Building Inspector 07/08/2023 09/03/2024 [facility] P[facility],No Primary Care 06/22/2023 09/03/2024 [facility] RUBI HERNADEZ Primary Care 06/22/2023 08/15/2023 [facility] NO PCP Primary Care 06/22/2023 06/22/2023
--- OUTSIDE RECORDS SUMMARY | 2025-01-14 08:30 | XMS_ITS | Clinical Summary ---
Author Organization [address] [place] [address] [place] [phone] Phone Care Team Providers Care Boilermaker Name Role Phone Diane Pina DO Primary Care Provider [phone] Allergies Active Allergy Reactions Criticality Noted Date Comments Gabapentin 05/09/2024 Morphine Dizziness 05/09/2024 Acetaminophen Congestion of the throat 05/09/20 24 Medications traZODone (DESYREL) 50 mg tablet Start with 25mg of trazodone once nightly, you may go up to a full tablet (50mg) if you are not sleeping well. 4 Active propranoloL (INDERAL) 20 mg tablet Take 1 tablet (20 mg total) by mouth 2 (two) times a day. 180 each 5 Active rimegepant (NURTEC) 75 mg dispersible tabletIndicatio ns:Other migraine without status migrainosus, intractable Take 1 tablet (75 mg total) by mouth 1 (one) time each day if needed for migraine. 20 tablet 3 5 Active rimegepant (NURTEC) 75 mg dispersible tabletIndicatio ns:Other migraine without status migrainosus, intractable Take 1 tablet (75 mg total) by mouth 1 (one) time each day if needed for migraine. 20 tablet 3 5 12/18/19 25 Discontinu ed(Reorder ) Active Problems Problem Noted Date Diagnosed Date Anxiety 09/17/2024 Chronic fatigue 09/17/2024 Intractable migraine without status migrainosus 09/17/2024 Insomnia 09/17/2024 Arthralgia 09/17/2024 Vitamin D deficiency 07/18/2024 Shortness of breath 11/21/2021 Overview (05/15/2024): Last Assessment & Plan: Symptoms appears new to her. She did have elevated markers for rheumatological disorder. We will arrange stress echocardiogram. Would like to arrange lipid panel, BMP, CRP if that has not checked. We will first obtain a copy of the most recent labs. Arrhythmia 11/18/2021 Palpitations 11/18/2021 Overview (05/15/2024): Last Assessment & Plan: Appears benign arrhythmia. We will arrange 48-hour Holter monitor first to assess her symptoms. Encounters Date Type Department Care Team Description 12/29/2024 10:00 AM EDT Treatment [facility] [address] [phone] Heather Gan, PT Arthralgia, unspecified joint (Primary Dx) 12/24/2024 2:00 PM EDT Treatment [facility] [address] [phone] Ramakrishna Sheldon, CAMP COOK Arthralgia, unspecified joint (Primary Dx) 12/18/2024 2:00 PM EDT Treatment [facility] [address] [phone] Carlos Duran, CAMP COOK Arthralgia, unspecified joint (Primary Dx) 12/16/2024 1:30 PM EDT Treatment [facility] [address] [phone] Carlos Duran, CAMP COOK Arthralgia, unspecified joint (Primary Dx) 12/11/2024 4:00 PM EDT Treatment [facility] [address] [phone] Heather Gan, PT Arthralgia, unspecified joint (Primary Dx) 12/04/2024 1:30 PM EDT Office Visit [facility] 175 [facility] [address] [place] [phone] Brooke Soto PA Other migraine without status migrainosus, intractable (Primary Dx) 12/04/2024 11:30 AM EDT Treatment [facility] [address] [phone] TremSudhir sarabiaon, PT Arthralgia, unspecified joint (Primary Dx) 11/28/2024 12:30 PM EDT Treatment [facility] [address] [phone] Tremno, Heather, PT Arthralgia, unspecified joint (Primary Dx) 11/25/2024 12:30 PM EDT Treatment [address] [phone] [place] Heather, PT Arthralgia, unspecified joint (Primary Dx) 10/29/2024 11:00 AM EDT Treatment [address] [phone] [place] Heather, PT Arthralgia, unspecified joint (Primary Dx) 10/22/2024 11:00 AM EDT Treatment [address] [phone] [place] Heather, PT Arthralgia, unspecified joint (Primary Dx) 10/21/2024 1:30 PM EDT Office Visit [facility] [address] [phone] Brooke Soto PA Positive (antinuclear antibody) (Primary Dx); Other migraine without status migrainosus, intractable 10/20/2024 11:00 AM EDT Treatment [address] [phone] [place] Heather, PT Arthralgia, unspecified joint (Primary Dx) from Last 3 Months Immunizations Name Administration Dates Next Due IPV Inactivated polio (Ipol) 6wks and older 04/09/2019 Influenza Quadravalent, MDCK , 0.5ml, preservative free (Flucelvax) 6mo and older 04/28/2023 Influenza Quadrivalent, 0.5m l, preservative free (Fluarix; FluLaval; Fluzone) ages 6mo and older (Afluria) 3yo and older 07/14/2022,03/01/2020,04/06/2019,2017 Influenza, Unspecified 07/31/2012 SARS-COV-2 (COVID-19) Vaccin e, Unspecified 11/16/2020,10/18/2020 Tdap Tetanus diptheria acell ular pertussis (Boostrix; Adacel) 7yo and older 10/24/2012 Surgical History Surgery Date Site/Laterality Comments HYSTERECTOMY 05/31/18 Medical History Medical History Date Comments Allergic rhinitis Anxiety Arthritis Headache Family History Medical History Relation Name Comments Cancer Father Larry Truong Prostate Hypertension Father Larry Truong Kidney disease Father's Sister More Truong Stroke Maternal Grandmother Jayashree Gannon Arthritis Mother Lindy Rooney Rheumatoid Art hritis Diabetes Mother Lindy Rooney Rheum arthritis Mother Lindy Rooney Stroke Paternal Grandmother Lisette Barnes Relation Name Status Comments Father Larry Truong Father's Sister More Truong Maternal Grandmother Jayashree Gannon Mother Lindy Rooney Paternal Grandmother Lisette Barnes Social History Tobacco Use Types Packs/Day Years Used Date Smoking Tobacco: Never Smokeless Tobacco: Never Tobacco Cessation:Counseling Given: Not Answered Alcohol Use Standard Drinks/Week Comments Yes 0 [...] care for your loved ones. For example, child custody evaluator or elderly care for an older adult? [...] Orientation Straight 07/23/2024 11 :22 AM EST Obstetrics History Last Filed Vital Signs Vital Sign Reading Time Taken Comments Blood Pressure 132/87 12/04/2024 1:35 PM EDT Pulse 54 12/04/2024 1:35 PM EDT Temperature 36.2 C (97.2 F) 12/04/2024 1:35 PM EDT Respiratory Rate - - Oxygen Saturation 98% 12/04/2024 1:35 PM EDT Inhaled Oxygen Concentration - - Weight 65.3 kg (144 lb) 12/04/2024 1:35 PM EDT Height 162.6 cm (5' 4 ) 12/04/2024 1:35 PM EDT Body Mass Index 24.72 12/04/2024 1:35 PM EDT Plan of Treatment Upcoming Encounters Date Type Department Care Team (Late st Contact Info) Description 01/21/2025 11:00 AM EDT Office Visit Internal Medicine - [facility] [address] [place] [phone] Diane Pina DO [address] [place] [address] 01/28/2025 12:30 PM EDT Treatment [facility] [address] [phone] Heather Gan, PT 01/30/2025 12:30 PM EDT Treatment [address] [phone] Heather Gan, PT 02/03/2025 12:30 PM EDT Treatment [facility] [address] [phone] Heather Gan, PT 02/05/2025 12:30 PM EDT Treatment [facility] [address] [phone] Heather Gan, PT 02/09/2025 12:30 PM EDT Treatment [address] [phone] Heather Gan, PT 02/11/2025 12:30 PM EDT Treatment [address] [phone] MalikSudhiron, PT 02/17/2025 12:30 PM EDT Treatment [facility] [address] [place] [phone] Heather Gan, PT 02/19/2025 12:30 PM EDT Treatment [facility] 175 [facility] [address] [place] [phone] MalikHeather, PT 03/06/2025 11:30 AM EDT Office Visit [facility] [address] [facility] [address] [place] [phone] Brooke Soto PA [address] [place] [address] Health Maintenance Due Date Last Done Comments Hepatitis B Vaccines (1 of 3 - 19+ 3-dose series) 2000 Cervical Cancer Screening: Pap Smear 2002 IPV Vaccines (2 of 3 - Adult catch-up series) 05/07/2019 04/09/2019 HIV Screening 05/21/2022 Hepatitis C Screening 05/21/2022 DTaP,Tdap,and Td Vaccines (2 - Td or Tdap) 10/24/2022 10/24/2012 COVID-19 Vaccine ( season) 2024 04/28/2023, 07/14/2022, 07/24/2021, Additional history exists Influenza Vaccine (#1) 2025 , 07/14/2022, 03/01/2020, Additional history exists Social Influencers of Health Screening 07/15/2025 07/15/2024 Breast Cancer Screening 07/25/2026 07/25/2024 Depression Screening Completed 07/15/2024 HIB Vaccines Aged Out No longer eligi ble based on patient's age to complete this topic HPV Vaccines Aged Out No longer eligi ble based on patient's age to complete this topic Hepatitis A Vaccines Aged Out No long er eligible based on patient's age to complete this topic MMR Vaccines Aged Out No longer eligi ble based on patient's age to complete this topic Meningococcal ACWY Vaccine Aged Out N o longer eligible based on patient's age to complete this topic Meningococcal B Vaccine Aged Out No l onger eligible based on patient's age to complete this topic Pneumococcal Vaccine: Pediatrics (0 to 5 Years) and At-Risk Patients (6 to 49 Years) Aged Out No longer eligible based on patient's age to complete this topic RSV Immunization Patients Under 20 months Aged Out No longer eligible based on patient's age to complete this topic Varicella Vaccines Aged Out No longer eligible based on patient's age to complete this topic Procedures Procedure Name Priority Date/Time Associated Diagnosis Comments IFA WITH TITER AND PATTERN Routine 10/21/2024 2:20 PM EDT Positive (antinuclear antibody) RHEUMATOID FACTOR Routine 10/21/2024 2:2 0 PM EDT Positive (antinuclear antibody) SJOGRENS ANTIBODIES, SSA AND SSB Routine 10/21/2024 2:20 PM EDT Positive (antinuclear antibody) C-REACTIVE PROTEIN Routine 10/21/2024 2: 20 PM EDT Positive (antinuclear antibody) MG MAMMO DIGITAL SCREENING W NAVIN BILAT Routine 07/25/2024 1:51 PM EST Encounter for screening for malignant neoplasm of breast, unspecified screening modality from Last 3 Months or Most Recently Relevant to Health Maintenance Results * Sjogrens antibodies, SSA and SSB (10/21/2024 2:20 PM EDT) Sjogren's SS-A (Ro) Ab Quant 2 <20 units LAB CHEMISTRY METHOD 10/27/2024 1:[address] [facility] Sjogren's SS-A (Ro) Ab Negative Negative LAB CHEMISTRY METHOD 10/27/2024 1:[address] [facility] Sjogren's SS-B (La) Ab Quant 1 <20 units LAB CHEMISTRY METHOD 10/27/2024 1:[address] [facility] Sjogren's SS-B (La) Ab Negative Negative LAB CHEMISTRY METHOD 10/27/2024 1:[address] [facility] Blood Venous blood specimen / Unknown Venipuncture / Unknown 10/21/2024 2:20 PM EDT 10/21/2024 2:20 PM EDT Brookemarquez Encisoi PA LAB BLOOD ORDERABLES Final R esult Performing Organization Address [facility]/ZIP Co de Phone Number [facility] [address] [place] [address], [place] [phone] * (ABNORMAL) IFA with titer and pattern (10/21/2024 2:20 PM EDT) Positive( A) Negative 10/22/2024 12:[address] [facility] Pattern Homogeneo us(A) (none) 10/22/2024 12:[address] [facility] Comment:May be Associated wi th SLE and drug-induced SLE. Titer 1:320(A) <1:160 10/22/2024 12:[address] [facility] Comment: Approximately 3% of healthy persons have titer of 1:320 or higher Further testing for other autoantibodies should be prompted by specific clinical findings/impressions. Blood Venous blood specimen / Unknown Venipuncture / Unknown 10/21/2024 2:20 PM EDT 10/21/2024 2:20 PM EDT us Brookemarquez Encisoi PA LAB BLOOD ORDERABLES Final R esult Performing Organization Address City/[facility]/ZIP Co de Phone Number [facility] [address] [place] [address], [place] [phone] * Rheumatoid factor (10/21/2024 2:20 PM EDT) Rheumatoid Factor <10.0 <15.0 I Unit/mL LAB CHEMISTRY METHOD 10/21/2024 7:[address] [facility] Blood Venous blood specimen / Unknown Venipuncture / Unknown 10/21/2024 2:20 PM EDT 10/21/2024 2:20 PM EDT Brookemarquez ANDRES LAB BLOOD ORDERABLES Final R esult Performing Organization Address City/[facility]/ZIP Co de Phone Number [facility] [address] [place] [address], [place] [phone] * C-reactive protein (10/21/2024 2:20 PM EDT) C-Reactive Protein <0.29 <=0.50 mg/dL LAB CHEMISTRY METHOD 10/21/2024 7:[address] [facility] Blood Venous blood specimen / Unknown Venipuncture / Unknown 10/21/2024 2:20 PM EDT 10/21/2024 2:20 PM EDT Brookemarquez Soto PA LAB BLOOD ORDERABLES Final R esult Performing Organization Address City/[facility] Co de Phone Number [facility] [address] [place] [address], [place] [phone] * MG Mammo Digital Screening w Navin bilat (07/25/2024 1:51 PM EST) Anatomical Region Laterality Modality Breast Bilateral Mammography 07/25/2024 2:04 PM EST Impressions 07/25/2024 2:05 PM EST No evidence of breast malignancy. BI-RADS CATEGORY: 1 - NEGATIVE RECOMMENDATION: Screening bilateral mammogram is recommended in 1 year. Mammo Location: [facility], [address] [place] [address], [id number], . -------- FINAL REPORT -------- Dictated By: Radha Gruber Dictated Date: 07/25/2024 14:04 ET Assigned Physician: Radha Gruber Reviewed and Electronically Signed By: Radha Gruber Signed Date: 07/25/2024 14:05 ET Workstation ID: [id number] Transcribed By: Self Edit Transcribed Date: 07/25/2024 14:04 ET Narrative 07/25/2024 2:05 PM EST CLINICAL: 43 years old, Female, routine annual exam. COMPARISON: None TECHNIQUE: Bilateral MLO and CC views were obtained digitally with 3-D mammogram (digital breast tomosynthesis). Computer-aided detection was utilized in evaluation of this exam (CAD). FINDINGS: There is no evidence of suspicious mass or architectural distortion. No worrisome calcifications are evident. BREAST DENSITY: C - The breasts are heterogeneously dense which may obscure small masses. Procedure Note Radha Gruber MD - 07/25/2024 CLINICAL: 43 years old, Female, routine annual exam. COMPARISON: None TECHNIQUE: Bilateral MLO and CC views were obtained digitally with 3-Dmammogram (digital breast tomosynthesis). Computer-aided detection wasutilized in evaluation of this exam (CAD). FINDINGS: There is no evidence of suspicious mass or architectural distortion. Noworrisome calcifications are evident. BREAST DENSITY: C - The breasts are heterogeneously dense which mayobscure small masses. IMPRESSION: No evidence of breast malignancy. BI-RADS CATEGORY: 1 - NEGATIVE RECOMMENDATION: Screening bilateral mammogram is recommended in 1 year. Mammo Location: [facility], [address] [place] [address], [id number], . -------- FINAL REPORT -------- Dictated By: Radha Gruber Dictated Date: 07/25/2024 14:04 ET Assigned Physician: Radha Gruber Reviewed and Electronically Signed By: Radha Gruber Signed Date: 07/25/2024 14:05 ET Workstation ID: [id number] Transcribed By: Self Edit Transcribed Date: 07/25/2024 14:04 ET Diane Pina DO IMG BI PROCEDURES Final Result from Last 3 Months or Most Recently Relevant to Health Maintenance Insurance [facility] Care Teams Boilermaker Relationship Specialty Start Date End Date Diane Pina DO [address] [place] [id number] PCP - General Internal Medicine 05/12/24
== END 2025-01-14 09:01 | disposition home or self-care (01) ==
LOC: HO.RHES 08:23
PROVIDERS: Visit Provider Internal Medicine Rheumatology
DX: M62.81 Muscle weakness (generalized) (principal)
CPT/HCPCS: 99214; G2211

== ENCOUNTER 2025-01-14 08:22 | Outpatient (REF) | payer OTHER, SELFPAY ==
[2025-01-15 08:19] LABS: HBS Num1 50.04 mIU/mL (0-7.99); HBc Num1 0.10 S/CO (0.00-0.79); HBsAGNum1 0.31 S/CO (0.00-0.99); Hepatitis B Surface Antigen Negative (Negative); ~HepC Num1 0.09 S/CO (0.00-0.79); ~Hepatitis B Surface Antibody REACTIVE (Nonreactive); ~Hepatitis C Antibody Nonreactive (Nonreactive)
[2025-01-15 22:18] LABS: Proteinase 3 PR3 Antibodies <1.0 AI
[2025-01-17 12:28] LABS: TS Negative Control Passed; TS Panel A 0; TS Panel B 0; TS Positive Control Passed; TSpotTB Negative (Negative)
== END 2025-01-14 08:23 | disposition home or self-care (01) ==
LOC: HO.HKASLDS 08:22
PROVIDERS: Visit Provider Internal Medicine Rheumatology
DX: M62.81 Muscle weakness (generalized) (principal); M79.7 Fibromyalgia; Z79.899 Other long term (current) drug therapy; Z11.1 Encounter for screening for respiratory tuberculosis; Z11.59 Encounter for screening for other viral diseases; D84.1 Defects in the complement system
CPT/HCPCS: 36415; 82085; 82550; 85652; 86021; 86140; 86481; 86704; 86706; 86803; 87340; 99212

== ENCOUNTER → 2025-01-26 10:42 | Outpatient (BNV) | payer OTHER, SELFPAY | PROVIDERS: Visit Provider Radiology Diagnostic Radiology | DX: M62.551 Muscle wasting and atrophy, not elsewhere classified, right thigh (principal) | CPT/HCPCS: 73720 ==

== ENCOUNTER 2025-01-26 10:47 | Outpatient (REF) | payer OTHER, SELFPAY ==
--- NOTE | ~2025-01-26 | MR_ITS ---
CLINICAL HISTORY: M62.81 - Muscle weakness (generalized) --- Additional Notes or Special Instructions: r o idiopathic inflammatory myositis Exam: MRI of the right thigh with and without intravenous contrast. Comparison: None provided. Findings: Coronal images were performed with large [id number] through both thighs. Please note that the bilateral hips and bilateral knees are at the far periphery of the [id number]-[id number]-eyaw resulting in distortion of the anatomical architecture. Bone marrow signal intensity is within normal limits. No fracture or concerning bone marrow signal alteration is identified. There is no periosteal reaction. Signal intensity of the soft tissues within both thighs is within normal limits. Specifically, no muscle edema or atrophy. No abnormal enhancement within the soft tissues. No soft tissue masses. No abnormality of the subcutaneous fat is seen. Impression: Negative MRI of the right thigh. Specifically, no abnormality of the side musculature is seen. This document has been electronically signed by: Hayden Del Toro MD on 01/28/2025 08:48:35
--- OUTSIDE RECORDS SUMMARY | 2025-01-26 11:30 | XMS_ITS | Clinical Summary ---
Author Organization [address] [place] [address] [place] [phone] Phone Care Team Providers Care Invisible Braces Orthodontist Name Role Phone Diane Pina DO Primary Care Provider [phone] Allergies Active Allergy Reactions Criticality Noted Date [...] time each day if needed for migraine. 16 tablet 3 5 Active rimegepant (NURTEC) 75 mg dispersible tabletIndicatio ns:Other migraine without status migrainosus, intractable Take 1 tablet (75 mg total) by mouth 1 (one) time each day if needed for migraine. 20 tablet 3 5 01/17/20 25 Discontinu ed(Reorder ) Active Problems Problem [...] Team Description 12/29/2024 10:00 AM EDT Treatment [facility] [address] [phone] Heather Gan, PT Arthralgia, unspecified joint (Primary Dx) 12/24/2024 2:00 PM EDT Treatment [facility] [address] [phone] Ramakrishna Sheldon, FINISHING ROOM OPERATOR Arthralgia, unspecified joint (Primary Dx) 12/18/2024 2:00 PM EDT Treatment [facility] [address] [phone] Carlos Duran, FINISHING ROOM OPERATOR Arthralgia, unspecified joint (Primary Dx) 12/16/2024 1:30 PM EDT Treatment [facility] [address] [phone] Carlos Duran, FINISHING ROOM OPERATOR Arthralgia, unspecified joint (Primary Dx) 12/11/2024 4:00 PM EDT Treatment [facility] [address] [phone] Heather Gan, PT Arthralgia, unspecified joint (Primary Dx) 12/04/2024 1:30 PM EDT Office Visit [facility] 175 [facility] [address] [place] [phone] Brooke Soto PA Other migraine without status migrainosus, intractable (Primary Dx) 12/04/2024 11:30 AM EDT Treatment [facility] [address] [phone] Heather Gan, PT Arthralgia, unspecified joint (Primary Dx) 11/28/2024 12:30 PM EDT Treatment [facility] [address] [phone] Heather Gan, PT Arthralgia, unspecified joint (Primary Dx) 11/25/2024 12:30 PM EDT Treatment [facility] [address] [phone] Heather Gan, PT Arthralgia, unspecified joint (Primary Dx) 10/29/2024 11:00 AM EDT Treatment [facility] [address] [phone] Heather Gan, PT Arthralgia, unspecified joint (Primary Dx) from [...] for your loved ones. For example, child study team director or elderly care for an older adult? [...] Care Team (Late st Contact Info) Description 01/28/2025 12:30 PM EDT Treatment [address] [phone] Heather Gan PT 01/30/2025 12:30 PM EDT Treatment [address] [place] [address] Heather Gan, PT 02/03/2025 12:30 PM EDT Treatment [facility] [address] [phone] Heather Gan, PT 02/05/2025 12:30 PM EDT Treatment [facility] [address] [phone] Heather Gan, PT 02/09/2025 12:30 PM EDT Treatment [facility] [address] [phone] Heather Gan, PT 02/11/2025 12:30 PM EDT Treatment [facility] [address] [phone] Heather Gan, PT 02/17/2025 12:30 PM EDT Treatment [address] [phone] Heather Gan, PT 02/19/2025 12:30 PM EDT Treatment [facility] [address] [phone] Heather Gan, PT 03/06/2025 11:30 AM EDT Office Visit [facility] [address] [phone] Brooke Soto PA [address] [address] 03/12/2025 11:00 AM EDT Office Visit Internal Medicine - [facility] [address] [place] [phone] Diane Pina DO [address] [place] [address] Health Maintenance Due Date Last Done Comments [...] Procedure Name Priority Date/Time Associated Diagnosis Comments MG MAMMO DIGITAL SCREENING W NAVIN BILAT Routine 07/25/2024 1:51 PM EST Encounter for screening for malignant neoplasm of breast, unspecified screening modality from Last 3 Months or Most Recently Relevant to Health Maintenance Results * MG Mammo Digital Screening w Navin bilat (07/25/2024 1:51 PM EST) Anatomical Region Laterality Modality Breast Bilateral Mammography 07/25/2024 2:04 PM EST Impressions 07/25/2024 2:05 PM EST No evidence of breast malignancy. BI-RADS CATEGORY: 1 - NEGATIVE RECOMMENDATION: Screening bilateral mammogram is recommended in 1 year. Mammo Location: [facility], [address] [place] [address], [id number], . -------- FINAL REPORT -------- Dictated By: Radha Gruber Dictated Date: 07/25/2024 14:04 ET Assigned Physician: Radha Gruber Reviewed and Electronically Signed By: Radha Gruber Signed Date: 07/25/2024 14:05 ET Workstation ID: [id number] Transcribed By: Self Edit Transcribed Date: 07/25/2024 [...] year. Mammo Location: [facility], [address] [place], [place], [address], . -------- FINAL REPORT -------- Dictated By: Radha Gruber Dictated Date: 07/25/2024 14:04 ET Assigned Physician: Radha Gruber Reviewed and Electronically Signed By: Radha Gruber Signed Date: 07/25/2024 14:05 ET Workstation ID: [id number] Transcribed By: Self Edit Transcribed Date: 07/25/2024 14:04 ET Diane Pina DO IMG BI PROCEDURES Final Result from Last 3 Months or Most Recently Relevant to Health Maintenance Insurance [facility] [employer] Care Teams Invisible Braces Orthodontist Relationship Specialty Start Date End Date Diane Pina DO [address] [place] [address] PCP - General Internal Medicine 05/12/24
--- OUTSIDE RECORDS SUMMARY | 2025-01-26 11:30 | XMS_ITS | Encounter Summary ---
Author Organization [facility] Address [address] [place] [address] Care Team Providers Care Mechanical Product Engineer Name Role Phone Radha Romano APRN Primary Care Provider + Jordan Ken MD Unavailable [phone] Encounter Details Date Type Department Care Team (Late st Contact Info) Description 04/04/2024 Scanned Document [facility] [address] [place] [phone] Radha Romano APRN [address] [place] [address] Social History Tobacco Use Types Packs/Day Years [...] on filedocumented in this encounter Care Teams Mechanical Product Engineer Relationship Specialty Start Date End Date Radha Romano APRN [address] [facility] [address] [place] [address] PCP - General Internal Medicine 06/22/23 Jordan Ken MD 7 [facility] [address] [place] [address] Primary Escort Car Driver Cardiovascular Disease 11/28/23 documented as of this encounter
--- OUTSIDE RECORDS SUMMARY | 2025-01-26 11:30 | XMS_ITS | Clinical Summary ---
Author Organization [facility] Address [address] [place] [address] Care Team Providers Care Scientific Diver Name Role Phone Unavailable Primary Care Provider [...]
== END 2025-01-26 10:48 | disposition home or self-care (01) ==
LOC: HO.MRI 10:47
PROVIDERS: Visit Provider Internal Medicine Rheumatology
DX: M62.81 Muscle weakness (generalized) (principal)
CPT/HCPCS: 73720; A9585